=== PATIENT | male | born 1960 | race Caucasian/White ===

== ENCOUNTER 2017-07-11 10:53 | Emergency (ER) | payer OTHER ==
[~2017-07-11] VITALS: Ht 180.3 cm; Wt 106.6 kg
[~2017-07-11 10:53] MED LIST: BENZONATATE100 M1 PO; DAYPRO600 M1 PO; DIOVAN80 M1 PO; GABAPENTIN800 MG PO; HYDR25T PO; HYDROCODONE BIT1 T11 PO; KEFLEX500 MG PO; LOSARTAN POTASS1 TA5 PO; MEDROL DOSEPAK4 MG PO; MOTRIN800 MG PO; NAPROSYN500 MG PO; PARAFON FORTE500 MG PO; PREDNISONE20 MG PO; SELSUN SULFIDE120 ML T; TRAMADOL HCL50 MG PO; VERAPAMIL HCL80 MG PO; VOLTAREN75 MG PO; ZOLOFT25 MG PO
[2017-07-11 11:04] VITALS: BP 126/63
[2017-07-11] MEDS ORDERED: CEPHALEXIN500 M1 PO (12:31)
== END 2017-07-11 12:45 | disposition home or self-care (01) ==
LOC: ED 10:53
DX: L02.415 Cutaneous abscess of right lower limb (principal); Z88.6 Allergy status to analgesic agent; Z79.899 Other long term (current) drug therapy; F17.200 Nicotine dependence, unspecified, uncomplicated

== ENCOUNTER → 2017-07-13 | Outpatient (CLI) | payer OTHER ==
[~2017-07-13] MED LIST changes: +CEPHALEXIN500 M1 PO
--- NOTE | ~2017-07-13 | WRIGHTHP ---
[place], [place] PATIENT HISTORY AND PHYSICAL EXAM NAME: MORGAN PATEL [facility] #: [id number] UNIT #: [id number] ROOM: DOCTOR: BETO MICHAELS M.D. BIRTHDATE: [birth year] DOS: 07/13/2017 The patient comes in as a new wound care. CHIEF COMPLAINT: Abscess of the right thigh. HISTORY OF PRESENT ILLNESS: This is a 56-year-old male who presented to the Emergency Department 2 days ago with an abscess of the right inner thigh. This area was drained in the ER, it looks like 5 mL of seropurulent fluid was obtained and sent for culture, which is at this time growing no growth. The patient was referred to the Wound Clinic for further management. There was no blood work done at that time. PAST MEDICAL HISTORY: Significant for hypertension, low back pain, history of cancer, leukemia, right eye surgery. FAMILY HISTORY: Significant for hypertension. SOCIAL HISTORY: He is a former smoker. He quit in 2013. He smoked 2 packs per day. He drinks moderate alcohol use. ALLERGIES: CODEINE. MEDICATIONS: As follows: Tramadol 50 mg b.i.d., Hyzaar 50/12.5 p.o. daily, gabapentin 100 t.i.d., Glucophage 500 daily, Toprol-XL 50 daily, verapamil 80 p.o. t.i.d., Cymbalta 60 mg p.o. daily. He is on Keflex 500 t.i.d. REVIEW OF SYSTEMS: He states he still has noticed that the area is closed over and is firm again, although it is not painful. There are no fevers or chills. There is no tenderness at all. No nausea or vomiting. He is on the antibiotics. He says he is not having any problems with them, but the area is not draining at all anymore. PHYSICAL EXAMINATION: VITAL SIGNS: Temperature is 97.8, pulse of 84, respirations 18, blood pressure is 142/80. GENERAL: This is a male who appears slightly older than his stated age, in no acute distress. HEENT: Oropharynx is clear. Extraocular movements are intact. NECK: There is no JVD. LUNGS: Clear. CARDIOVASCULAR: S1, S2 regular rate and rhythm. ABDOMEN: Morbidly obese, and soft and nontender. EXTREMITIES: There is no calf tenderness. So, he has an area that is erythematous of the right inner thigh and is slightly indurated, but it is not tender at all and there is no fluctuance. ASSESSMENT AND PLAN: Abscess of the right upper thigh, he is status post drainage. He still has some induration present and due to the continued induration, I will add Bactrim double strength 1 tablet p.o. b.i.d. I asked him [place], [place] PATIENT HISTORY AND PHYSICAL EXAM [id number] UN[facility] #: [id number] ROOM: DOCTOR: BRANDO Diehl,BETO BIRTHDATE: 60 to use warm compresses 3 times a day for now and he has a followup appointment with his PCP. He does not have an open wound, so he does not have to come back to the Wound Clinic. However, if this area worsens, it may need to be further drained. Once again, the patient is going to follow up with his primary care physician. The patient is going to be discharged from the Wound Clinic. BETO MICHAELS MD CM:HISPHYS:PATIENT HISTORY AND PHYSICAL EXAMINATION [id number] BETO MICHAELS M.D. 07/13/17 1447 interface
== END | disposition home or self-care (01) ==
LOC: WOUNDCARE 03:20
DX: L02.415 Cutaneous abscess of right lower limb (principal); I10 Essential (primary) hypertension; Z87.891 Personal history of nicotine dependence; Z72.89 Other problems related to lifestyle

== ENCOUNTER 2018-01-06 13:33 | Emergency (ER) | payer MEDICAID ==
[~2018-01-06] VITALS: Ht 180.3 cm; Wt 120.2 kg
[2018-01-06 14:14] VITALS: BP 176/83
[2018-01-06] MEDS ORDERED: TRAMADOL HCL50 MG PO (14:15)
[2018-01-06] MEDS ORDERED: LORAZEPAM0.5 MG PO (14:15)
[2018-01-06] MEDS ORDERED: PRAVASTATIN SOD20 MG PO (14:16)
[2018-01-06] MEDS ORDERED: METFORMIN HCL500 MG PO (14:16)
[2018-01-06] MEDS ORDERED: DULOXETINE HCL60 MG PO (14:17)
[2018-01-06] MEDS ORDERED: ADVAIR 250/501 EA INH (14:17)
[2018-01-06] MEDS ORDERED: PROVENTIL HFA6.7 GM INH (14:17)
[2018-01-06] MEDS ORDERED: LORATADINE-D 11 EACH PO (14:18)
[2018-01-06] MEDS ORDERED: PREDNISONE10 MG PO (15:28)
[2018-01-06] MEDS ORDERED: ZITHROMAX250 MG PO (15:34)
== END 2018-01-06 15:59 | disposition home or self-care (01) ==
LOC: ED 13:33
DX: H66.92 Otitis media, unspecified, left ear (principal); F17.200 Nicotine dependence, unspecified, uncomplicated; I10 Essential (primary) hypertension; J45.909 Unspecified asthma, uncomplicated; Z98.890 Other specified postprocedural states; Z79.899 Other long term (current) drug therapy; Z88.5 Allergy status to narcotic agent

== ENCOUNTER 2018-05-19 12:02 | Inpatient (IN) | payer MEDICARE, MEDICAID ==
[2018-05-19] VITALS (9 sets, daily range): BP systolic 124–155; BP diastolic 60–108
[~2018-05-19] VITALS: Ht 180.3 cm; Wt 115.7 kg
--- NOTE | ~2018-05-19 | CON ---
[place], [place] REPORT OF CONSULTATION NAME: MORGAN PATEL UNIT #: [id number] ROOM: 411 DOCTOR: SHALOM MONTALVO MD BIRTHDATE: [birth year] DOS: 05/19/2018 REASON FOR CONSULTATION: Atrial flutter. HISTORY OF PRESENT ILLNESS: The patient is a 57-year-old man who has no previous history of heart disease. He does have hypertension, insulin resistance and body habitus consistent with a metabolic syndrome. He states that for the last month or so he has had several episodes where he feels breathless, weak and a fluttering sensation in his chest. This occurs once or twice a week. It lasts anywhere from 5 minutes to an hour. He was seen today by his primary physician, Dr. Gurrola, who did an electrocardiogram and documented atrial flutter with a rapid ventricular response. He was, therefore, hospitalized and placed on diltiazem after which his rhythm reverted to sinus. The patient feels well now and denies any dyspnea at rest. He denies any history of myocardial infarction or stroke. He does not have peripheral vascular disease. He does consume about one half of a fifth of whiskey a week. He does not smoke, having quit 3 years ago. He does snore heavily. PAST MEDICAL HISTORY: Includes: 1. Hypertension. 2. Obstructive lung disease with asthma. 3. Hyperlipidemia. 4. Metabolic syndrome. 5. The patient documented to have atrial flutter on 05/19/2018. 6. Insulin resistance. 7. Probable sleep apnea syndrome. HOME MEDICATIONS: Albuterol 2 puffs b.i.d., Advair 250/50 b.i.d., duloxetine 60 mg daily, gabapentin 800 mg 3 times a day, loratadine with pseudoephedrine 1 tablet b.i.d., losartan with hydrochlorothiazide 50/12.5 once a day, metformin 500 mg b.i.d., metoprolol succinate 50 mg daily, pravastatin 20 mg at bedtime and verapamil 80 mg t.i.d. ALLERGIES: CODEINE. REVIEW OF SYSTEMS: The patient denies diplopia or loss of vision. He denies lightheadedness or syncope. Denies orthopnea, PND or peripheral edema. He does have dyspnea with minor exertion. He does note lightheadedness and fatigue on occasion since the "spells" began. He denies nausea or vomiting. He denies fevers, chills, sweats or recent weight change. He denies hemoptysis or hematemesis. He denies change in bowel or bladder habits. He denies blood in the stools or urine. He denies skin rash, heat intolerance or cold intolerance and denies polyuria or polydipsia. The remainder of the review of systems is negative except as noted above. FAMILY HISTORY: Negative for early coronary artery disease. [place], [place] REPORT OF CONSULTATION NAME: MORGAN PATEL UNIT #: [id number] ROOM: 411 DOCTOR: SHALOM MONTALVO MD BIRTHDATE: [birth year] SOCIAL HISTORY: The patient was a smoker, but quit 3 years ago. He does drink alcohol on a routine basis and states that he drinks at least a half of a fifth of whiskey weekly. PHYSICAL EXAMINATION: GENERAL: The patient is an obese white man, who is awake, alert and oriented. VITAL SIGNS: Pulse varies from 60-120, blood pressure is 152/90. He has a fever of 99.9. He weighs 115.7 kg and has a body mass index of 35.6. HEENT: Normocephalic and atraumatic. Extraocular muscles are intact. Sclerae are clear. Pupils are equal, round and react to light. The oral mucosa is moist. Tongue is midline. NECK: Supple. He has no jugular distention. Carotids are full without bruits. There are no neck or supraclavicular masses, no thyromegaly. LUNGS: Respirations are unlabored. His chest is clear to auscultation and percussion. He has no presacral edema or chest wall tenderness. CARDIOVASCULAR: His heart has a regular rhythm. He has a fourth heart sound, but no third heart sound or murmur. The PMI is not displaced. He has no precordial heave, lift or thrill. ABDOMEN: Obese, but otherwise benign, without masses, organomegaly or bruits. EXTREMITIES: No edema. Peripheral pulses were easily palpated in the feet bilaterally. There were no palpable cords or Homans sign. LABORATORY DATA: I reviewed his electrocardiogram, in sinus rhythm. It was a normal tracing. Hemoglobin is 16.9, hematocrit 52.2. There are 14,600 white cells. Sodium is 142, potassium 4.2, chloride 107, CO2 27. BUN 21, creatinine 1.16, glucose 114. Troponins have been negative x 2. TSH is 1.63. IMPRESSION: 1. Newly documented atrial flutter. 2. CHADS-VASc score of 2 indicating high risk for future strokes. 3. Hypertension. 4. Insulin resistance. 5. Hyperlipidemia. 6. Metabolic syndrome. 7. Essential hypertension. 8. Alcohol use. 9. Probable sleep apnea syndrome. The patient will be treated with rate control for now. We will increase his beta yuir and continue to observe him on the monitor. His risk for stroke is high and therefore, he will be started on Xarelto. He will require testing and management of sleep apnea syndrome as an outpatient. He was told that he should curtail his alcohol consumption. In addition, I note that he was on a decongestant with Sudafed and we should stop that. I will review his echocardiogram once available. We will follow him with his other physicians in the hospital. I thank Dr. Gurrola for asking our advice regarding his care. [place], [place] REPORT OF CONSULTATION NAME: MORGAN PATEL UNIT #: [id number] ROOM: 411 DOCTOR: SHALOM MONTALVO MD BIRTHDATE: [birth year] SHALOM MONTALVO MD CM:CONSTR:REPORT OF CONSULTATION 1707 05/29/18 0922 interface
--- NOTE | ~2018-05-19 | PR ---
[place], [place] PROGRESS NOTE [id number] UN[facility] #: [id number] ROOM: 411 DOCTOR: SYLVESTER VERONICA MD BIRTHDATE: [birth year] DOS: 05/20/2018 SUBJECTIVE: The patient has been admitted to the hospital with atrial flutter by Dr. Gurrola yesterday and the patient is feeling good now. He does not have any chest pain, no tachycardia, no difficulty in breathing and he is in normal sinus rhythm, rate is 58 per minute. He has past history of chronic back pain, hypertension, major depression, type 2 diabetes. The patient drinks alcohol one-fifth every week and smokes 4-5 cigars daily. On examination, the patient is conscious, alert and oriented, sitting very comfortably in the chair. He ate his breakfast very comfortably. His troponin level on 2 different occasions are normal. Echocardiogram shows left ventricular size, normal size. There is a normal left ventricular segmental wall motion, moderate concentric left ventricular hypertrophy, ejection fraction 60%. Right ventricle is normal. Comprehensive metabolic profile showed glucose 209, BUN 21, creatinine 1.14, GFR is 52. Lipid profile is normal. Hemoglobin A1c 6.9 and vitamin B12 and folic acid is normal. Vitamin D level is low and CBC today showed white count 21,100; hemoglobin 15.9; hematocrit 49.8; 94% neutrophils; 60% lymphocytes. OBJECTIVE: VITAL SIGNS: His blood pressure today is 113/52, pulse 61, respirations 18, temperature 98.1. HEART: Regular. CHEST: Clear. ABDOMEN: Soft. SYLVESTER VERONICA MD CM:PNTRANS [id number] SYLVESTER VERONICA MD 06/15/18 0840 interface
--- NOTE | ~2018-05-19 | PR ---
[place], [place] PROGRESS NOTE [id number] #: [id number] ROOM: 411 DOCTOR: SYLVESTER VERONICA MD BIRTHDATE: [birth year] DOS: 05/21/2018 SUBJECTIVE: The patient has been admitted to the hospital with atrial flutter. The patient is feeling good today. There is no nausea, no vomiting, no chest pain, no difficulty in breathing. The patient is able to ambulate fairly good without any problem, but he is having leukocytosis. His blood count again today is 32,000, hemoglobin 15.3, hematocrit is 47.1, 89% neutrophils, 6% lymphocytes, 28% neutrophils. OBJECTIVE: VITAL SIGNS: Blood pressure 143/73, pulse 60, respirations 20, temperature 98.4. CHEST: Clear. HEART: Regular. ABDOMEN: Soft. SYLVESTER VERONICA MD CM:PNTRANS [id number] SYLVESTER VEROINCA MD 05/22/18 1400 interface
--- NOTE | ~2018-05-19 | PR ---
[place], [place] PROGRESS NOTE NAME: MORGAN PATEL UNIT #: [id number] ROOM: 411 DOCTOR: SHALOM MONTALVO MD BIRTHDATE: [birth year] DOS: 05/22/2018 CARDIOLOGY PROGRESS NOTE SUBJECTIVE: The patient was seen at his bedside today 05/22/2018 for followup of his newly documented atrial flutter. He has remained in sinus rhythm since he spontaneously converted to sinus rhythm out of flutter on 05/19/2018. He is tolerating beta yuri therapy and his blood pressure control is good. His discharge appears to have been held up by the fact that his white count continues to elevate. PHYSICAL EXAMINATION: VITAL SIGNS: Today, his pulse is 51 and regular, blood pressure 124/62. He is afebrile. NECK: Supple. He has no jugular distention. Carotids are full. LUNGS: Respirations are unlabored. His chest is clear. HEART: Has a regular rhythm with an S4 gallop. ABDOMEN: Benign. EXTREMITIES: Showed no edema. LABORATORY DATA: Hemoglobin is 15.3 with hematocrit 47.1. There were 32,000 white cells and platelet count of 373,000. IMPRESSION: 1. Newly documented atrial flutter. The patient converted spontaneously to sinus rhythm. 2. [id number] score of 2 indicating high risk for future strokes. 3. Essential hypertension. 4. Insulin resistance. 5. Metabolic syndrome. 6. Hyperlipidemia. 7. History of alcohol use. 8. Probable sleep apnea syndrome. 9. Leukocytosis, probably exacerbated by intravenous steroid use. No other cardiac workup or change in management is planned. We will remain available to see the patient as needed, but in the meantime, we will sign off his care. I would like him to follow up with us in the office in 3-4 weeks. I thank the hospitalist physicians for asking our advice regarding his management. [place], [place] PROGRESS NOTE NAME: MORGAN PATEL UNIT #: [id number] ROOM: 411 DOCTOR: SHALOM MONTALVO MD BIRTHDATE: [birth year] SHALOM MONTALVO MD CM:PNTRANS [id number] SHALOM MONTALVO MD 05/23/18 0718 interface
[~2018-05-19 12:02] MED LIST changes: +ADVAIR 250/501 EA INH; +DULOXETINE HCL60 MG PO; +LORATADINE-D 11 EACH PO; +LORAZEPAM0.5 MG PO; -LOSARTAN POTASS1 TA5 PO; +LOSARTAN-HCTZ1 EACH PO; +METFORMIN HCL500 MG PO; +PRAVASTATIN SOD20 MG PO; +PREDNISONE10 MG PO; +PROVENTIL HFA6.7 GM INH; +ZITHROMAX250 MG PO
[2018-05-19 12:48] LABS: BASO # 0.1 10*3/uL (0.0-0.1); BASO % 0.6 % (0.0-1.0); EOS # 0.3 10*3/uL (0.0-0.4); EOS % 1.8 % (1.0-4.0); HEMATOCRIT 52.2 % (42.0-52.0); HEMOGLOBIN 16.9 g/dl (14.0-18.0); LYMPH # 4.3 10*3/uL (1.3-4.4); LYMPH % 29.1 % (27.0-41.0); MEAN CELL VOLUME 95.4 fl (80.0-94.0); MEAN CORPUSCULAR HGB 30.9 pg (27.0-31.0); MEAN CORPUSCULAR HGB CONC 32.4 g/dl (33.0-37.0); MEAN PLATELET VOLUME 10.1 fl (9.6-12.3); MONO % 6.8 % (3.0-9.0); NEUT % 61.4 % (47.0-73.0); PLATELET COUNT AUTOMATED 352 10*3/uL (130-400); RED BLOOD COUNT 5.47 10*6/uL (4.50-5.90); RED CELL DISTRI WIDTH 13.3 % (0-14.5); WHITE BLOOD COUNT 14.6 10*3/uL (4.8-10.8)
[2018-05-19 12:57] LABS: ACT PARTIAL THROMBO TIME 25.5 SECONDS (20.8-31.5); INTERNATIONAL NORM RATIO 0.9 (2.0-3.5)
[2018-05-19] MEDS ORDERED: PROAIR HFA8.5 GM INH (13:04)
[2018-05-19 13:05] LABS: ALBUMIN 3.7 gm/dl (3.1-4.5); ALKALINE PHOSPHATASE 155 U/L (45-117); BUN 21 mg/dl (7-24); CHLORIDE 107 mmol/L (98-107); CREATININE 1.16 mg/dL (0.70-1.30); PHOSPHOROUS 2.8 mg/dL (2.5-4.9); POTASSIUM 4.2 mmol/L (3.5-5.1); SGOT/AST 31 IU/L (3-35); SGPT/ALT 71 U/L (12-78); SODIUM 142 mmol/L (136-145)
[2018-05-19] MEDS ORDERED: TOPROL XL50 M1 PO (13:08)
[2018-05-19 13:09] LABS: TROPONIN I < 0.015 ng/ml (<0.045)
[2018-05-19 14:19] LABS: BILIRUBIN NEGATIVE (NEGATIVE); BLOOD NEGATIVE (NEGATIVE); CLARITY CLEAR (CLEAR); COLOR YELLOW (YELLOW); GLUCOSE NEGATIVE (NEGATIVE); KETONE NEGATIVE (NEGATIVE); LEUKO ESTERASE NEGATIVE (NEGATIVE); NITRITE NEGATIVE (NEGATIVE); PH 5.5 (5.0-9.0); UROBILINOGEN 0.2 E.U./dl (0.2-1.0)
[2018-05-19 14:29] LABS: BACTERIA TRACE; EPITHELIAL CELLS 0-2
[2018-05-20] VITALS: BP 123/55
[2018-05-20 04:00] VITALS: BP 111/49
[2018-05-20 06:08] LABS: HEMATOCRIT 49.8 % (42.0-52.0); HEMOGLOBIN 15.9 g/dl (14.0-18.0); MEAN CELL VOLUME 95.8 fl (80.0-94.0); MEAN CORPUSCULAR HGB 30.6 pg (27.0-31.0); MEAN CORPUSCULAR HGB CONC 31.9 g/dl (33.0-37.0); MEAN PLATELET VOLUME 10.2 fl (9.6-12.3); PLATELET COUNT AUTOMATED 350 10*3/uL (130-400); RED CELL DISTRI WIDTH 13.2 % (0-14.5); WHITE BLOOD COUNT 21.1 10*3/uL (4.8-10.8)
[2018-05-20 06:29] LABS: ALBUMIN 3.3 gm/dl (3.1-4.5); ALKALINE PHOSPHATASE 126 U/L (45-117); BUN 21 mg/dl (7-24); CHLORIDE 106 mmol/L (98-107); CHOLESTEROL 164 mg/dL (<200); CREATININE 1.41 mg/dL (0.70-1.30); HDL CHOLESTEROL 34 mg/dl (40-60); LDL CHOLESTEROL 106 mg/dL (9-159); PHOSPHOROUS 3.2 mg/dL (2.5-4.9); POTASSIUM 4.2 mmol/L (3.5-5.1); SGOT/AST 14 IU/L (3-35); SGPT/ALT 60 U/L (12-78); SODIUM 141 mmol/L (136-145); TOTAL PROTEIN 7.1 gm/dL (6.4-8.2); TRIGLYCERIDES 120 mg/dl (<150); VLDL CHOLESTEROL 24 mg/dL (6-40)
[2018-05-20 07:17] LABS: PLATELET SUFFICIENCY NORMAL (NORMAL); TOTAL CELLS COUNTED 100 #CELLS
[2018-05-20 07:36] LABS: VITAMIN D, 25-HYDROXY 21.7 ng/mL (30-100)
[2018-05-20 08:00] VITALS: BP 113/52
[2018-05-20 11:55] VITALS: BP 121/54
[2018-05-20 16:00] VITALS: BP 139/62
[2018-05-20 20:00] VITALS: BP 128/61
[2018-05-21] VITALS: BP 113/60
[2018-05-21 08:00] VITALS: BP 143/73
[2018-05-21 12:00] VITALS: BP 162/64
[2018-05-21 12:30] LABS: HEMATOCRIT 47.1 % (42.0-52.0); HEMOGLOBIN 15.3 g/dl (14.0-18.0); MEAN CELL VOLUME 94.6 fl (80.0-94.0); MEAN CORPUSCULAR HGB 30.7 pg (27.0-31.0); MEAN CORPUSCULAR HGB CONC 32.5 g/dl (33.0-37.0); MEAN PLATELET VOLUME 10.3 fl (9.6-12.3); PLATELET COUNT AUTOMATED 373 10*3/uL (130-400); RED BLOOD COUNT 4.98 10*6/uL (4.50-5.90); RED CELL DISTRI WIDTH 13.7 % (0-14.5)
[2018-05-21 12:50] LABS: TOTAL CELLS COUNTED 100 #CELLS
[2018-05-21 12:51] LABS: PLATELET SUFFICIENCY NORMAL (NORMAL)
[2018-05-21 16:00] VITALS: BP 140/66
[2018-05-21 20:00] VITALS: BP 138/65
[2018-05-22] VITALS: BP 114/61
[2018-05-22 08:00] VITALS: BP 124/62
[2018-05-22 12:00] VITALS: BP 137/75
[2018-05-22] MEDS ORDERED: PREDNISONE10 MG PO (13:08)
[2018-05-22] MEDS ORDERED: TOPROL XL50 M1 PO (13:08)
[2018-05-22] MEDS ORDERED: DOXYCYCLINE100 MG PO (13:08)
[2018-05-22] MEDS ORDERED: XARE20MG PO (13:08)
[2018-06-13] MEDS ORDERED: GLUCOPHAGE500 M1 PO (09:06)
== END 2018-05-22 13:37 | disposition home or self-care (01) | DRG 871 ==
LOC: 4E 12:02 → ICCU 12:02 → 4E 05-20 14:02
PROVIDERS: Family Medicine; Internal Medicine Cardiovascular Disease
DX: A41.9 Sepsis, unspecified organism (principal); J18.9 Pneumonia, unspecified organism; E88.81 Metabolic syndrome and other insulin resistance; I48.92 Unspecified atrial flutter; E11.65 Type 2 diabetes mellitus with hyperglycemia; J44.1 Chronic obstructive pulmonary disease with (acute) exacerbation; J44.0 Chronic obstructive pulmonary disease with (acute) lower respiratory infection; F33.9 Major depressive disorder, recurrent, unspecified; G89.29 Other chronic pain; M54.9 Dorsalgia, unspecified; F17.210 Nicotine dependence, cigarettes, uncomplicated; G47.30 Sleep apnea, unspecified; E78.5 Hyperlipidemia, unspecified; I10 Essential (primary) hypertension; F10.10 Alcohol abuse, uncomplicated; Z88.5 Allergy status to narcotic agent; Z79.899 Other long term (current) drug therapy; Z88.8 Allergy status to other drugs, medicaments and biological substances; Z79.84 Long term (current) use of oral hypoglycemic drugs; Z82.49 Family history of ischemic heart disease and other diseases of the circulatory system; Z80.42 Family history of malignant neoplasm of prostate; Z71.6 Tobacco abuse counseling

== ENCOUNTER 2018-06-09 11:08 | Emergency (ER) | payer MEDICARE, MEDICAID ==
[~2018-06-09] VITALS: Ht 180.3 cm; Wt 118.8 kg
[~2018-06-09 11:08] MED LIST changes: +DOXYCYCLINE100 MG PO; +PROAIR HFA8.5 GM INH; +TOPROL XL50 M1 PO; +XARE20MG PO
[2018-06-09 11:11] VITALS: BP 131/58
[2018-06-09 11:56] LABS: BASO # 0.1 10*3/uL (0.0-0.1); BASO % 0.5 % (0.0-1.0); EOS # 0.2 10*3/uL (0.0-0.4); EOS % 1.4 % (1.0-4.0); HEMOGLOBIN 15.1 g/dl (14.0-18.0); LYMPH # 2.6 10*3/uL (1.3-4.4); LYMPH % 22.4 % (27.0-41.0); MEAN CELL VOLUME 94.5 fl (80.0-94.0); MEAN CORPUSCULAR HGB CONC 32.8 g/dl (33.0-37.0); MEAN PLATELET VOLUME 9.6 fl (9.6-12.3); MONO # 0.7 10*3/uL (0.1-1.0); MONO % 5.9 % (3.0-9.0); NEUT # 8.2 10*3/uL (2.3-7.9); NEUT % 69.5 % (47.0-73.0); PLATELET COUNT AUTOMATED 251 10*3/uL (130-400); RED BLOOD COUNT 4.87 10*6/uL (4.50-5.90); RED CELL DISTRI WIDTH 14.1 % (0-14.5); WHITE BLOOD COUNT 11.8 10*3/uL (4.8-10.8)
[2018-06-09 12:05] LABS: ACT PARTIAL THROMBO TIME 33.4 SECONDS (20.8-31.5)
[2018-06-09 12:14] LABS: ALBUMIN 3.4 gm/dl (3.1-4.5); ALKALINE PHOSPHATASE 126 U/L (45-117); BUN 17 mg/dl (7-24); CHLORIDE 106 mmol/L (98-107); CREATININE 0.97 mg/dL (0.70-1.30); LIPASE 366 U/L (73-393); POTASSIUM 4.2 mmol/L (3.5-5.1); SGOT/AST 17 IU/L (3-35); SGPT/ALT 39 U/L (12-78); SODIUM 141 mmol/L (136-145); TOTAL PROTEIN 6.7 gm/dL (6.4-8.2)
[2018-06-13] MEDS ORDERED: GLUCOPHAGE500 M1 PO (09:06)
== END 2018-06-09 14:28 | disposition home or self-care (01) ==
LOC: ED 11:08
PROVIDERS: Emergency Medicine
DX: M54.2 Cervicalgia (principal); E04.1 Nontoxic single thyroid nodule; H92.01 Otalgia, right ear; F17.210 Nicotine dependence, cigarettes, uncomplicated; Z88.6 Allergy status to analgesic agent; Z79.899 Other long term (current) drug therapy

== ENCOUNTER → 2018-06-13 | Outpatient (CLI) | payer MEDICARE, MEDICAID ==
[~2018-06-13] MED LIST changes: +GLUCOPHAGE500 M1 PO
== END | disposition home or self-care (01) ==
LOC: CARD 03:22
DX: I48.92 Unspecified atrial flutter (principal); R06.02 Shortness of breath

== ENCOUNTER → 2018-06-26 | Outpatient (CLI) | payer MEDICARE, MEDICAID | END | disposition home or self-care (01) | LOC: US 11:00 | DX: E04.1 Nontoxic single thyroid nodule (principal); R06.83 Snoring ==

== ENCOUNTER 2018-10-22 03:31 | Inpatient (IN) | payer MEDICARE, MEDICAID ==
[~2018-10-22] VITALS: Ht 180.3 cm; Wt 119.8 kg
[2018-10-22] VITALS (8 sets, daily range): BP systolic 127–156; BP diastolic 62–89
[2018-10-22 04:12] LABS: BASO # 0.1 10*3/uL (0.0-0.1); BASO % 0.8 % (0.0-1.0); EOS # 0.2 10*3/uL (0.0-0.4); EOS % 1.7 % (1.0-4.0); HEMATOCRIT 51.5 % (42.0-52.0); HEMOGLOBIN 17.2 g/dl (14.0-18.0); LYMPH # 2.9 10*3/uL (1.3-4.4); LYMPH % 20.4 % (27.0-41.0); MEAN CELL VOLUME 91.2 fl (80.0-94.0); MEAN CORPUSCULAR HGB 30.4 pg (27.0-31.0); MEAN CORPUSCULAR HGB CONC 33.4 g/dl (33.0-37.0); MEAN PLATELET VOLUME 10.1 fl (9.6-12.3); MONO # 1.1 10*3/uL (0.1-1.0); MONO % 7.4 % (3.0-9.0); NEUT % 69.4 % (47.0-73.0); PLATELET COUNT AUTOMATED 319 10*3/uL (130-400); RED BLOOD COUNT 5.65 10*6/uL (4.50-5.90); RED CELL DISTRI WIDTH 13.2 % (0-14.5); WHITE BLOOD COUNT 14.4 10*3/uL (4.8-10.8)
[2018-10-22 04:14] LABS: BILIRUBIN NEGATIVE (NEGATIVE); BLOOD 2+ (NEGATIVE); CLARITY SL CLOUDY (CLEAR); COLOR YELLOW (YELLOW); GLUCOSE TRACE (NEGATIVE); KETONE NEGATIVE (NEGATIVE); LEUKO ESTERASE NEGATIVE (NEGATIVE); NITRITE NEGATIVE (NEGATIVE); PH 5.5 (5.0-9.0); SPECIFIC GRAVITY 1.025 (1.005-1.030); UROBILINOGEN 0.2 E.U./dl (0.2-1.0)
[2018-10-22 04:24] LABS: BACTERIA 1+; MUCOUS 1+; RBC 31-40 rbc/hpf (0-2)
[2018-10-22 04:37] LABS: ALBUMIN 3.9 gm/dl (3.1-4.5); ALKALINE PHOSPHATASE 125 U/L (45-117); BUN 14 mg/dl (7-24); CHLORIDE 104 mmol/L (98-107); CREATININE 1.14 mg/dL (0.70-1.30); POTASSIUM 4.1 mmol/L (3.5-5.1); SGOT/AST 21 IU/L (3-35); SGPT/ALT 45 U/L (12-78); SODIUM 139 mmol/L (136-145); TOTAL PROTEIN 7.5 gm/dL (6.4-8.2)
[2018-10-23] VITALS: BP 136/74
[2018-10-23 07:06] LABS: BASO # 0.1 10*3/uL (0.0-0.1); BASO % 0.7 % (0.0-1.0); EOS # 0.2 10*3/uL (0.0-0.4); EOS % 2.4 % (1.0-4.0); HEMATOCRIT 50.9 % (42.0-52.0); HEMOGLOBIN 16.4 g/dl (14.0-18.0); LYMPH # 2.6 10*3/uL (1.3-4.4); LYMPH % 27.6 % (27.0-41.0); MEAN CELL VOLUME 93.1 fl (80.0-94.0); MEAN CORPUSCULAR HGB CONC 32.2 g/dl (33.0-37.0); MONO # 0.7 10*3/uL (0.1-1.0); MONO % 6.8 % (3.0-9.0); NEUT % 62.3 % (47.0-73.0); PLATELET COUNT AUTOMATED 282 10*3/uL (130-400); RED BLOOD COUNT 5.47 10*6/uL (4.50-5.90); RED CELL DISTRI WIDTH 13.1 % (0-14.5); WHITE BLOOD COUNT 9.6 10*3/uL (4.8-10.8)
[2018-10-23 07:32] LABS: CHLORIDE 104 mmol/L (98-107); POTASSIUM 4.2 mmol/L (3.5-5.1); SODIUM 138 mmol/L (136-145)
[2018-10-23 07:43] LABS: BUN 11 mg/dl (7-24); CREATININE 1.09 mg/dL (0.70-1.30)
[2018-10-23 08:00] VITALS: BP 140/68
[2018-10-23 12:00] VITALS: BP 145/63
[2018-10-23 16:00] VITALS: BP 146/72
[2018-10-23 20:00] VITALS: BP 140/51
[2018-10-24] VITALS: BP 129/63
[2018-10-24 06:59] LABS: BASO # 0.1 10*3/uL (0.0-0.1); BASO % 0.7 % (0.0-1.0); EOS # 0.2 10*3/uL (0.0-0.4); EOS % 2.1 % (1.0-4.0); HEMATOCRIT 48.3 % (42.0-52.0); HEMOGLOBIN 15.6 g/dl (14.0-18.0); LYMPH # 2.9 10*3/uL (1.3-4.4); LYMPH % 26.7 % (27.0-41.0); MEAN CELL VOLUME 92.4 fl (80.0-94.0); MEAN CORPUSCULAR HGB 29.8 pg (27.0-31.0); MEAN CORPUSCULAR HGB CONC 32.3 g/dl (33.0-37.0); MEAN PLATELET VOLUME 10.2 fl (9.6-12.3); MONO # 0.8 10*3/uL (0.1-1.0); MONO % 7.4 % (3.0-9.0); NEUT # 6.8 10*3/uL (2.3-7.9); NEUT % 62.6 % (47.0-73.0); PLATELET COUNT AUTOMATED 285 10*3/uL (130-400); RED BLOOD COUNT 5.23 10*6/uL (4.50-5.90); RED CELL DISTRI WIDTH 13.1 % (0-14.5); WHITE BLOOD COUNT 10.9 10*3/uL (4.8-10.8)
[2018-10-24 07:14] LABS: BUN 9 mg/dl (7-24); CHLORIDE 104 mmol/L (98-107); POTASSIUM 4.3 mmol/L (3.5-5.1); SODIUM 139 mmol/L (136-145)
[2018-10-24 08:00] VITALS: BP 132/64
[2018-10-24] MEDS ORDERED: FLAGYL500 MG PO (11:36)
[2018-10-25 10:05] LABS: CREATININE,URINE 95.4 mg/dL (Not Estab.); MICRO ALBUMIN/CRE RATIO 75.3 (0.0-30.0)
== END 2018-10-24 11:47 | disposition home or self-care (01) | DRG 872 ==
LOC: ED 03:31 → 5E 05:57 → EDHOLD 05:57 → 5E 06:04
PROVIDERS: Emergency Medicine Emergency Medical Services; Internal Medicine; Internal Medicine Nephrology
DX: A41.9 Sepsis, unspecified organism (principal); J44.0 Chronic obstructive pulmonary disease with (acute) lower respiratory infection; I48.92 Unspecified atrial flutter; J44.1 Chronic obstructive pulmonary disease with (acute) exacerbation; K57.32 Diverticulitis of large intestine without perforation or abscess without bleeding; F10.10 Alcohol abuse, uncomplicated; G89.29 Other chronic pain; M54.9 Dorsalgia, unspecified; I10 Essential (primary) hypertension; E11.9 Type 2 diabetes mellitus without complications; F17.210 Nicotine dependence, cigarettes, uncomplicated; I48.91 Unspecified atrial fibrillation; J20.9 Acute bronchitis, unspecified; R31.0 Gross hematuria; Z71.6 Tobacco abuse counseling; Z87.01 Personal history of pneumonia (recurrent); Z82.49 Family history of ischemic heart disease and other diseases of the circulatory system; Z88.6 Allergy status to analgesic agent; Z80.42 Family history of malignant neoplasm of prostate; Z79.84 Long term (current) use of oral hypoglycemic drugs; Z79.899 Other long term (current) drug therapy; Z79.01 Long term (current) use of anticoagulants

== ENCOUNTER → 2018-11-03 | Outpatient (CLI) | payer MEDICARE, MEDICAID ==
[~2018-11-03] MED LIST changes: +FLAGYL500 MG PO
== END | disposition home or self-care (01) ==
LOC: US 10:05
DX: N32.89 Other specified disorders of bladder (principal); I10 Essential (primary) hypertension; E11.9 Type 2 diabetes mellitus without complications

== ENCOUNTER 2018-11-29 23:01 | Emergency (ER) | payer MEDICARE, MEDICAID ==
[~2018-11-29] VITALS: Ht 180.3 cm; Wt 117.9 kg
[~2018-11-29 23:01] MED LIST changes: +SEPTDS PO
[2018-11-29 23:03] VITALS: BP 146/78
[2018-11-29 23:38] LABS: BILIRUBIN NEGATIVE (NEGATIVE); BLOOD 3+ (NEGATIVE); CLARITY CLOUDY (CLEAR); COLOR YELLOW (YELLOW); GLUCOSE NEGATIVE (NEGATIVE); KETONE NEGATIVE (NEGATIVE); LEUKO ESTERASE 1+ (NEGATIVE); NITRITE NEGATIVE (NEGATIVE); UROBILINOGEN 0.2 E.U./dl (0.2-1.0)
[2018-11-29 23:42] LABS: BACTERIA TRACE; RBC TNTC rbc/hpf (0-2); WBC 0-2 wbc/hpf (0-5)
== END 2018-11-30 00:36 | disposition home or self-care (01) ==
LOC: ED 23:01
PROVIDERS: Emergency Medicine Emergency Medical Services
DX: R33.9 Retention of urine, unspecified (principal); J44.9 Chronic obstructive pulmonary disease, unspecified; I10 Essential (primary) hypertension; G89.29 Other chronic pain; E11.9 Type 2 diabetes mellitus without complications; Z98.890 Other specified postprocedural states; Z88.6 Allergy status to analgesic agent

== ENCOUNTER → 2018-12-29 | Outpatient (CLI) | payer MEDICARE, MEDICAID ==
[2018-12-29 12:44] LABS: BASO # 0.1 10*3/uL (0.0-0.1); BASO % 0.8 % (0.0-1.0); EOS # 0.3 10*3/uL (0.0-0.4); EOS % 1.9 % (1.0-4.0); HEMATOCRIT 49.6 % (42.0-52.0); HEMOGLOBIN 15.7 g/dl (14.0-18.0); LYMPH # 3.9 10*3/uL (1.3-4.4); LYMPH % 28.9 % (27.0-41.0); MEAN CELL VOLUME 93.4 fl (80.0-94.0); MEAN CORPUSCULAR HGB 29.6 pg (27.0-31.0); MEAN CORPUSCULAR HGB CONC 31.7 g/dl (33.0-37.0); MEAN PLATELET VOLUME 10.1 fl (9.6-12.3); MONO # 0.9 10*3/uL (0.1-1.0); NEUT # 8.2 10*3/uL (2.3-7.9); NEUT % 61.1 % (47.0-73.0); PLATELET COUNT AUTOMATED 337 10*3/uL (130-400); RED BLOOD COUNT 5.31 10*6/uL (4.50-5.90); RED CELL DISTRI WIDTH 14.3 % (0-14.5); WHITE BLOOD COUNT 13.4 10*3/uL (4.8-10.8)
[2018-12-29 13:11] LABS: ALBUMIN 3.7 gm/dl (3.1-4.5); ALKALINE PHOSPHATASE 151 U/L (45-117); BUN 12 mg/dl (7-24); CHLORIDE 103 mmol/L (98-107); CREATININE 1.06 mg/dL (0.70-1.30); SGOT/AST 19 IU/L (3-35); SGPT/ALT 49 U/L (12-78); SODIUM 141 mmol/L (136-145); TOTAL PROTEIN 7.5 gm/dL (6.4-8.2)
== END | disposition home or self-care (01) ==
LOC: LAB 12:01 → US 13:00
PROVIDERS: Urology
DX: N28.89 Other specified disorders of kidney and ureter (principal); I48.91 Unspecified atrial fibrillation; E55.9 Vitamin D deficiency, unspecified; D40.0 Neoplasm of uncertain behavior of prostate

== ENCOUNTER → 2019-03-07 | Outpatient (CLI) | payer MEDICARE, MEDICAID ==
[2019-03-07 16:49] LABS: BASO # 0.1 10*3/uL (0.0-0.1); BASO % 0.5 % (0.0-1.0); EOS # 0.2 10*3/uL (0.0-0.4); EOS % 1.7 % (1.0-4.0); HEMATOCRIT 46.7 % (42.0-52.0); LYMPH # 3.5 10*3/uL (1.3-4.4); LYMPH % 26.8 % (27.0-41.0); MEAN CELL VOLUME 93.2 fl (80.0-94.0); MEAN CORPUSCULAR HGB 29.9 pg (27.0-31.0); MEAN CORPUSCULAR HGB CONC 32.1 g/dl (33.0-37.0); MEAN PLATELET VOLUME 10.5 fl (9.6-12.3); MONO % 7.5 % (3.0-9.0); NEUT # 8.3 10*3/uL (2.3-7.9); NEUT % 63.1 % (47.0-73.0); PLATELET COUNT AUTOMATED 351 10*3/uL (130-400); RED BLOOD COUNT 5.01 10*6/uL (4.50-5.90); RED CELL DISTRI WIDTH 13.7 % (0-14.5); WHITE BLOOD COUNT 13.2 10*3/uL (4.8-10.8)
== END | disposition home or self-care (01) ==
LOC: LAB 15:48
PROVIDERS: Internal Medicine
DX: R31.9 Hematuria, unspecified (principal)

== ENCOUNTER → 2019-03-22 | Outpatient (CLI) | payer MEDICARE, MEDICAID ==
[2019-03-22 12:18] LABS: BUN 13 mg/dl (7-24); CHLORIDE 109 mmol/L (98-107); POTASSIUM 4.1 mmol/L (3.5-5.1); SODIUM 144 mmol/L (136-145)
== END | disposition home or self-care (01) ==
LOC: LAB 11:05
PROVIDERS: Internal Medicine Nephrology
DX: I10 Essential (primary) hypertension (principal)

== ENCOUNTER → 2019-08-03 | Outpatient (CLI) | payer MEDICARE, MEDICAID | END | disposition home or self-care (01) | LOC: US 09:40 | DX: R10.31 Right lower quadrant pain (principal); I10 Essential (primary) hypertension; E11.9 Type 2 diabetes mellitus without complications ==

== ENCOUNTER 2019-08-23 15:22 | Inpatient (IN) | payer MEDICARE, MEDICAID ==
[~2019-08-23] VITALS: Ht 180.3 cm; Wt 116.6 kg
[~2019-08-23 15:22] MED LIST changes: -METFORMIN HCL500 MG PO; +METFORMIN XR500 MG PO
[2019-08-23 16:00] VITALS: BP 105/54; BP 130/82
[2019-08-23 16:22] LABS: BASO # 0.1 10*3/uL (0.0-0.1); BASO % 0.5 % (0.0-1.0); EOS # 0.2 10*3/uL (0.0-0.4); EOS % 1.3 % (1.0-4.0); HEMATOCRIT 52.2 % (42.0-52.0); HEMOGLOBIN 17.1 g/dl (14.0-18.0); LYMPH % 18.8 % (27.0-41.0); MEAN CELL VOLUME 92.6 fl (80.0-94.0); MEAN CORPUSCULAR HGB 30.3 pg (27.0-31.0); MEAN CORPUSCULAR HGB CONC 32.8 g/dl (33.0-37.0); MEAN PLATELET VOLUME 10.1 fl (9.6-12.3); MONO # 1.2 10*3/uL (0.1-1.0); MONO % 7.5 % (3.0-9.0); NEUT # 11.3 10*3/uL (2.3-7.9); NEUT % 71.5 % (47.0-73.0); PLATELET COUNT AUTOMATED 343 10*3/uL (130-400); RED BLOOD COUNT 5.64 10*6/uL (4.50-5.90); RED CELL DISTRI WIDTH 14.3 % (0-14.5); WHITE BLOOD COUNT 15.8 10*3/uL (4.8-10.8)
--- NOTE | 2019-08-23 16:33 | NUR ---
Time: 1599 A 58 year old MALE admitted to under services of DR. JENNIFER TERAN,RODRIGO. Pt. arrived via ambulatory from MD. Chief complaint: ABSCESS LEFT ARMPIT. HISSOM,MAISHA
--- NOTE | 2019-08-23 16:37 | NUR ---
DR. HARPER CALLED SHE NOTIFIED DR. LAUREANO AWARE OF CONSULT. NPO AFTER MIDNIGHT.
[2019-08-23 16:42] LABS: ALBUMIN 3.8 gm/dl (3.1-4.5); ALKALINE PHOSPHATASE 180 U/L (45-117); BUN 18 mg/dl (7-24); CHLORIDE 105 mmol/L (98-107); CREATININE 1.21 mg/dL (0.70-1.30); POTASSIUM 4.2 mmol/L (3.5-5.1); SGOT/AST 25 IU/L (3-35); SGPT/ALT 61 U/L (12-78); SODIUM 138 mmol/L (136-145); TOTAL PROTEIN 7.7 gm/dL (6.4-8.2)
--- NOTE | 2019-08-23 16:48 | NUR ---
PATEINT TAKEN OFF FLOOR VIA WHEELCHAIR TO ULTRASOUND
--- NOTE | 2019-08-23 17:14 | NUR ---
IV started right hand with #22 angiocath after 1 attempts. The IV site was prepped with Chloraprep. Heparin lock attached. Sterile dressing applied. Patient tolerated precedure well. Procedure performed according to [facility] policy & procedure. ARMANDO DON
--- NOTE | 2019-08-23 19:00 | NUR ---
RESTING IN BED. TOLERATED ROUTINE IV MEDICATION. CALL LIGHT IN REACH.
[2019-08-23 20:00] VITALS: BP 123/65
--- NOTE | 2019-08-23 20:39 | NUR ---
CALLED DR. DAHL REGARDING PT STATES HE ATE SOME PIZZA FOR DINNER AND GOT HEARTBURN. HE WOULD LIKE TUMS OR ROLAIDS. ORDER TAKEN AND REVIEWED.
--- NOTE | 2019-08-23 21:14 | NUR ---
MEDICATED WITH TUMS PO FOR INDIGESTION, SEE EMAR. CALL LIGHT IN REACH.
--- NOTE | 2019-08-23 22:00 | NUR ---
PT RESTING IN BED. MEDICATIONS EFFECTIVE. CALL LIGHT IN REACH.
[2019-08-24] VITALS (8 sets, daily range): BP systolic 100–151; BP diastolic 38–84
--- NOTE | 2019-08-24 01:27 | NUR ---
0000 RESTING IN BED WITH EYES CLOSED. APPEARS TO BE SLEEPING. HEP LINDA C INTACT. NO DISTRESS NOTED. NPO FOR POSSIBLE OR IN AM.
--- NOTE | 2019-08-24 05:42 | NUR ---
0540 MEDICATED WITH NORCO PO FOR C/O'S PAIN LEFT AXILLA, WITH SMALL SIP H20.
--- NOTE | 2019-08-24 06:10 | NUR ---
EARLIER PAIN MED EFFECTIVE. REMAINS NPO. NO DISTRESS NOTED.
[2019-08-24 06:15] LABS: BASO # 0.1 10*3/uL (0.0-0.1); BASO % 0.5 % (0.0-1.0); EOS # 0.2 10*3/uL (0.0-0.4); EOS % 1.7 % (1.0-4.0); HEMATOCRIT 50.5 % (42.0-52.0); HEMOGLOBIN 16.6 g/dl (14.0-18.0); LYMPH # 3.3 10*3/uL (1.3-4.4); LYMPH % 24.6 % (27.0-41.0); MEAN CELL VOLUME 92.2 fl (80.0-94.0); MEAN CORPUSCULAR HGB 30.3 pg (27.0-31.0); MEAN CORPUSCULAR HGB CONC 32.9 g/dl (33.0-37.0); MEAN PLATELET VOLUME 10.2 fl (9.6-12.3); MONO # 1.1 10*3/uL (0.1-1.0); MONO % 8.4 % (3.0-9.0); NEUT # 8.7 10*3/uL (2.3-7.9); NEUT % 64.5 % (47.0-73.0); PLATELET COUNT AUTOMATED 339 10*3/uL (130-400); RED BLOOD COUNT 5.48 10*6/uL (4.50-5.90); RED CELL DISTRI WIDTH 14.2 % (0-14.5); WHITE BLOOD COUNT 13.4 10*3/uL (4.8-10.8)
[2019-08-24 06:45] LABS: BUN 19 mg/dl (7-24); CHLORIDE 105 mmol/L (98-107); CHOLESTEROL 129 mg/dL (<200); CREATININE 1.23 mg/dL (0.70-1.30); HDL CHOLESTEROL 34 mg/dl (40-60); LDL CHOLESTEROL 62 mg/dL (9-159); PHOSPHOROUS 3.7 mg/dL (2.5-4.9); POTASSIUM 4.2 mmol/L (3.5-5.1); SODIUM 138 mmol/L (136-145); TRIGLYCERIDES 166 mg/dl (<150); VLDL CHOLESTEROL 33 mg/dL (6-40)
[2019-08-24 06:57] LABS: ACT PARTIAL THROMBO TIME 33.6 SECONDS (20.0-32.1)
--- NOTE | 2019-08-24 07:14 | NUR ---
MORGAN PATEL [id number] Please refer to the physician's history and physical for past medical history, comorbid conditions, and allergies. Diagnosis: ABSCESS LEFT ARMPIT Lorenzo Score: 23,LOW OR NO RISK WOUND DESCRIPTIONS: Wound Number: 1 Location of the wound: left side below axilla Type of wound: abscess Thickness: Partial Size: 4.5cm x 10.0cm x <0.1cm Tunneling: none Undermining: none Sinus Tract: none Presence of Exudate: none Amount: None Color: dark red Odor: None Periwound Skin Appearance: Erythema, firmness, warmth Wound edges: approximated Pain (associated with wound): tender to touch How does patient state this happened? pt stated this started 4 days ago and is sent here from the doctor office to be evaluated Surface the patient is resting on: Isoflex SKIN PREVENTION RECOMMENDATION: 1. Pressure redistribution support surface as appropriate 2. Elevate heels 3. Remove boots/TEDS every shift and reapply 4. Head of bed 30 degrees as tolerated 5. Assess nutrition and hydration 6. Manage moisture 7. Avoid the use of containment devices while in bed 8. Use absorptive products on surfaces limit layers of linens on bed 9. Turn and reposition every 1-2 hours in bed and every 1 hour in chair as tolerated 10. Weight shifts every 15 minutes while up in chair 11. Offloading with pillows or device to keep heels elevated off bed 12. Monitor skin at least every shift 13. Inspect under medical devices twice a day WOUND TREATMENT RECOMMENDATIONS: Dr. Loza is already consult for surgery today 08/24/19. Await post op orders since surgery in today 08/24/19. Patient stated that he will follow up with Dr. Loza or in the wound care center which ever Dr. Loza prefers on discharge. He stated any day or time will work well for him.
[2019-08-24 07:32] LABS: VITAMIN D, 25-HYDROXY 22.6 ng/mL (30-100)
--- NOTE | 2019-08-24 09:00 | NUR ---
Puttier in to talk to patient. Patient states lives at home with his mother. There are 0 steps in the home. Physician: Dr. Michael Gurrola [facility] Home health services: none Patient's level of ADLs: INDEPENDENT Patient has working utilities: yes DME: none Follow-up physician's appointment after d/c: he prefers to make his own follow up appt after discharge Does patient want to access PORTAL?: no Discharge plan discussed with patient. He lives at home with his mother. He is independent in his ADLs and ambulation. Discussed home health services and he denies any home needs at this time. He states it will be fine. When medically stable he will be discharged to home. His mother will provide transportation on discharge. FIDEL HOLDER
--- NOTE | 2019-08-24 17:18 | NUR ---
PT MEDIACTED WITH PRN NORCO AT 1618 FOR C/O LEFT AXILLA PAIN. 07/07. WAS EFFECTIVE.
--- NOTE | 2019-08-24 19:44 | NUR ---
TOOK OVER CARE OF PT, ASSESMENT COMPLETE AT THIS TIME. PT DRESSING TO LEFT AXILLA SOILED/DISLODGED. PACKING IN TACT. NEW ABD PADS SECURED WITH TAPE APPLIED, OLD DRESSING DISCARDED INTO TRASH. PT COMPLAINS OF NOTHING. ALL NEEDS CURRENTLY MET. CALL LIGHT IN REACH.
--- NOTE | 2019-08-24 22:00 | NUR ---
ATTEMPTED TO FLUSH PATIENT IV SITE TO RIGHT HAND IN ORDER TO INFUSE SCHEDULED ZOSYN. IV SITE NOT FLUSHING, EDEMATOUS, AND PAINFUL. PT REQUEST THAT IV CATHETER BE REMOVED. IV SITE DISCONTINUED AT THIS TIME. PT REFUSING A NEW IV SITE. DR HERNANDEZ NOTIFIED. NO NEW ORDERS RECEIVED AT THIS TIME. WILL ATTEMPT A NEW IV SITE AT A DIFFERENT TIME.
--- NOTE | 2019-08-24 23:55 | NUR ---
PT GIVEN NORCO AT THIS TIME FOR C/O PAIN TO LEFT AXILLA. WILL MONITOR FOR EFFECTIVENESS. PT LYIING IN BED, ALL SAFETY MEASURES IN PLACE. CALL LIGHT IN REACH. PT DENIES NEEDING ANYTHING ELSE AT THIS TIME.
[2019-08-25] VITALS: BP 113/64
--- NOTE | 2019-08-25 00:55 | NUR ---
GEORGE EFFECTIVE PER PT.
--- NOTE | 2019-08-25 06:41 | NUR ---
BLOOD SUGAR OBTAINED AND WNL. NO S/S OF DISTRESS. NO COMPLAINTS VOICED. PT LYING IN BED. ALL NEEDS MET. CALL LIGHT IN REACH.
--- NOTE | 2019-08-25 06:58 | NUR ---
DR LAUREANO IN TO SEE PATIENT. NEW ORDERS RECEIVED FOR AM NURSE TO CHANGE PACKING IN PATIENT'S DRESSING TO LEFT AXILLA. PT TO RECEIVE WOUND CARE CENTER NUMBER SO THAT PATIENT CAN FOLLOW UP AT WOUND CARE CENTER FOR WOUND TO LEFT AXILLA. DR LAUREANO STATES THAT PATIENT CAN BE DISCHARGED FROM HIS STANDPOINT.
[2019-08-25 08:00] VITALS: BP 123/73
--- NOTE | 2019-08-25 09:00 | NUR ---
PT REQUESTED AND GIVEN NORCO FOR C/O LEFT ARM PAIN. PT RATES PAIN 5/10 WILL MONITOR
[2019-08-25] MEDS ORDERED: DOXYCYCLINE100 M3 PO (14:32)
--- NOTE | 2019-08-25 14:53 | NUR ---
PT REFUSES TO HAVE DC WOUND PHOTOS
--- NOTE | 2019-08-25 15:06 | NUR ---
Discharge instructions reviewed with patient/family. Patient receptive and verbalizes understanding. Follow-up care arranged. Written instructions given to patient/family. SALIMA ALBARADO
== END 2019-08-25 15:06 | disposition home or self-care (01) | DRG 603 ==
LOC: 5E 15:22
PROVIDERS: Student in an Organized Health Care Education/Training Program; ADMIT Internal Medicine
PROC: 0X950ZZ Drainage of Left Axilla, Open Approach (ICD-10-PCS; principal; 2019-08-24)
DX: L02.412 Cutaneous abscess of left axilla (principal); F33.0 Major depressive disorder, recurrent, mild; I48.92 Unspecified atrial flutter; I10 Essential (primary) hypertension; E11.65 Type 2 diabetes mellitus with hyperglycemia; M54.5 Low back pain; G89.29 Other chronic pain; J43.9 Emphysema, unspecified; F17.210 Nicotine dependence, cigarettes, uncomplicated; E55.9 Vitamin D deficiency, unspecified; F12.10 Cannabis abuse, uncomplicated; N40.0 Benign prostatic hyperplasia without lower urinary tract symptoms; Z71.6 Tobacco abuse counseling; Z85.51 Personal history of malignant neoplasm of bladder; Z88.5 Allergy status to narcotic agent; Z82.49 Family history of ischemic heart disease and other diseases of the circulatory system; Z80.42 Family history of malignant neoplasm of prostate; Z79.01 Long term (current) use of anticoagulants

== ENCOUNTER → 2019-11-01 | Outpatient (CLI) | payer MEDICARE, MEDICAID ==
[~2019-11-01] MED LIST changes: +CIPROFLOXACIN500 M4 PO; +DOXYCYCLINE100 M3 PO; +DULOXETINE HCL30 MG PO; +FINASTERIDE5 M1 PO; +METOPROLOL SUCC50 M1 PO; +PRAVASTATIN SOD40 MG PO; +VITAMIN D-32000 UNI1 PO
[2019-11-01 15:26] LABS: BASO # 0.1 10*3/uL (0.0-0.1); BASO % 0.8 % (0.0-1.0); EOS # 0.3 10*3/uL (0.0-0.4); EOS % 1.7 % (1.0-4.0); HEMATOCRIT 49.6 % (42.0-52.0); HEMOGLOBIN 15.8 g/dl (14.0-18.0); LYMPH # 3.4 10*3/uL (1.3-4.4); MEAN CELL VOLUME 92.7 fl (80.0-94.0); MEAN CORPUSCULAR HGB 29.5 pg (27.0-31.0); MEAN CORPUSCULAR HGB CONC 31.9 g/dl (33.0-37.0); MEAN PLATELET VOLUME 10.2 fl (9.6-12.3); MONO # 1.3 10*3/uL (0.1-1.0); MONO % 8.6 % (3.0-9.0); NEUT # 9.6 10*3/uL (2.3-7.9); NEUT % 65.6 % (47.0-73.0); PLATELET COUNT AUTOMATED 354 10*3/uL (130-400); RED BLOOD COUNT 5.35 10*6/uL (4.50-5.90); RED CELL DISTRI WIDTH 14.3 % (0-14.5); WHITE BLOOD COUNT 14.7 10*3/uL (4.8-10.8)
[2019-11-01 16:00] LABS: ALBUMIN 3.5 gm/dl (3.1-4.5); ALKALINE PHOSPHATASE 146 U/L (45-117); BUN 18 mg/dl (7-24); CHLORIDE 109 mmol/L (98-107); POTASSIUM 3.8 mmol/L (3.5-5.1); SGOT/AST 20 IU/L (3-35); SGPT/ALT 35 U/L (12-78); SODIUM 143 mmol/L (136-145); TOTAL PROTEIN 7.1 gm/dL (6.4-8.2)
== END | disposition home or self-care (01) ==
LOC: LAB 14:30
PROVIDERS: Internal Medicine
DX: J44.9 Chronic obstructive pulmonary disease, unspecified (principal)

== ENCOUNTER 2019-11-07 14:28 | Inpatient (IN) | payer MEDICARE, MEDICAID ==
[~2019-11-07] VITALS: Ht 180.3 cm; Wt 118.6 kg
[~2019-11-07 14:28] MED LIST changes: -CIPROFLOXACIN500 M4 PO; -DULOXETINE HCL30 MG PO; -FINASTERIDE5 M1 PO; -METOPROLOL SUCC50 M1 PO; -PRAVASTATIN SOD40 MG PO; -VITAMIN D-32000 UNI1 PO
[2019-11-07 14:30] VITALS: BP 139/61
[2019-11-07 15:02] LABS: BASO # 0.1 10*3/uL (0.0-0.1); BASO % 0.4 % (0.0-1.0); EOS # 0.2 10*3/uL (0.0-0.4); EOS % 0.9 % (1.0-4.0); HEMATOCRIT 50.2 % (42.0-52.0); HEMOGLOBIN 16.3 g/dl (14.0-18.0); LYMPH # 2.9 10*3/uL (1.3-4.4); LYMPH % 17.1 % (27.0-41.0); MEAN CELL VOLUME 92.1 fl (80.0-94.0); MEAN CORPUSCULAR HGB 29.9 pg (27.0-31.0); MEAN CORPUSCULAR HGB CONC 32.5 g/dl (33.0-37.0); MEAN PLATELET VOLUME 10.2 fl (9.6-12.3); MONO # 1.3 10*3/uL (0.1-1.0); MONO % 7.7 % (3.0-9.0); NEUT # 12.2 10*3/uL (2.3-7.9); NEUT % 73.4 % (47.0-73.0); PLATELET COUNT AUTOMATED 315 10*3/uL (130-400); RED BLOOD COUNT 5.45 10*6/uL (4.50-5.90); RED CELL DISTRI WIDTH 13.9 % (0-14.5); WHITE BLOOD COUNT 16.7 10*3/uL (4.8-10.8)
[2019-11-07 15:19] LABS: ALBUMIN 3.4 gm/dl (3.1-4.5); ALKALINE PHOSPHATASE 142 U/L (45-117); BUN 17 mg/dl (7-24); CHLORIDE 106 mmol/L (98-107); LIPASE 228 U/L (73-393); POTASSIUM 3.7 mmol/L (3.5-5.1); SGOT/AST 15 IU/L (3-35); SGPT/ALT 33 U/L (12-78); SODIUM 139 mmol/L (136-145); TOTAL PROTEIN 7.4 gm/dL (6.4-8.2)
[2019-11-07 15:51] LABS: BILIRUBIN NEGATIVE (NEGATIVE); BLOOD TRACE-INTACT (NEGATIVE); CLARITY CLEAR (CLEAR); COLOR ORANGE (YELLOW); GLUCOSE 1+ (NEGATIVE); KETONE TRACE (NEGATIVE); LEUKO ESTERASE TRACE (NEGATIVE); NITRITE POSITIVE (NEGATIVE); PH 5.5 (5.0-9.0); SPECIFIC GRAVITY 1.025 (1.005-1.030); UROBILINOGEN >= 8.0 E.U./dl (0.2-1.0)
[2019-11-07 15:58] LABS: RBC 16-20 rbc/hpf (0-2); WBC 21-30 wbc/hpf (0-5)
[2019-11-07 15:59] LABS: BACTERIA TRACE
[2019-11-07 19:38] VITALS: BP 150/70
--- NOTE | 2019-11-07 19:38 | NUR ---
A 59, admitted to 4E, under the services of RODRIGO Mercedes MD with a diagnosis of DIVERTICULITIS SEPSIS. Chief complaint is ABDOMINAL PAIN. Patient arrived via wheel chair from ER. Monitor applied. Initial assessment completed. Vital signs taken and recorded. RODRIGO MERCEDES MD notified of admission to the unit. Orders received. See assessment for past medical history, medications and allergies. Patient and/or family oriented to unit. Clothing/patient valuable form completed. ALESHIA GERMAIN
[2019-11-07] MEDS ORDERED: DULOXETINE HCL30 MG PO (19:47)
[2019-11-07] MEDS ORDERED: METOPROLOL SUCC50 M1 PO (19:56)
[2019-11-07 20:00] VITALS: BP 150/70
[2019-11-07] MEDS ORDERED: FINASTERIDE5 M1 PO (20:01)
[2019-11-07] MEDS ORDERED: VITAMIN D-32000 UNI1 PO (20:01)
[2019-11-07] MEDS ORDERED: CIPROFLOXACIN500 M4 PO (20:03)
[2019-11-07] MEDS ORDERED: PRAVASTATIN SOD40 MG PO (20:04)
--- NOTE | 2019-11-07 20:30 | NUR ---
DR. RIVERO NOTIFIED PATIENT HOME MED REQ IS UPDATED ACCORDING TO CLAIM HISTORY BUT NEEDS VERIFIED WITH HIS PHARMACY D/T PATIENT NOT KNOWING MEDICATIONS.
[2019-11-07 20:36] VITALS: BP 124/72
--- NOTE | 2019-11-07 20:51 | NUR ---
NOTIFIED DR. RIVERO PATIENT HAD A LESS THAN 10 SECOND RUN OF V-TACH.
[2019-11-07 22:45] LABS: TROPONIN I < 0.015 ng/ml (<0.045)
[2019-11-08] VITALS: BP 132/54
--- NOTE | 2019-11-08 01:48 | NUR ---
24 HR chart check completed.
[2019-11-08 04:08] LABS: BASO # 0.1 10*3/uL (0.0-0.1); BASO % 0.5 % (0.0-1.0); EOS # 0.2 10*3/uL (0.0-0.4); EOS % 1.8 % (1.0-4.0); HEMATOCRIT 47.1 % (42.0-52.0); HEMOGLOBIN 14.9 g/dl (14.0-18.0); LYMPH # 2.8 10*3/uL (1.3-4.4); LYMPH % 23.1 % (27.0-41.0); MEAN CELL VOLUME 94.2 fl (80.0-94.0); MEAN CORPUSCULAR HGB 29.8 pg (27.0-31.0); MEAN CORPUSCULAR HGB CONC 31.6 g/dl (33.0-37.0); MEAN PLATELET VOLUME 10.3 fl (9.6-12.3); MONO # 1.2 10*3/uL (0.1-1.0); NEUT # 7.9 10*3/uL (2.3-7.9); NEUT % 64.1 % (47.0-73.0); PLATELET COUNT AUTOMATED 283 10*3/uL (130-400); WHITE BLOOD COUNT 12.3 10*3/uL (4.8-10.8)
[2019-11-08 04:29] LABS: ALBUMIN 2.9 gm/dl (3.1-4.5); ALKALINE PHOSPHATASE 111 U/L (45-117); BUN 14 mg/dl (7-24); CHLORIDE 111 mmol/L (98-107); CHOLESTEROL 115 mg/dL (<200); CREATININE 1.07 mg/dL (0.70-1.30); HDL CHOLESTEROL 38 mg/dl (40-60); PHOSPHOROUS 2.9 mg/dL (2.5-4.9); POTASSIUM 4.1 mmol/L (3.5-5.1); SGOT/AST 12 IU/L (3-35); SGPT/ALT 25 U/L (12-78); SODIUM 142 mmol/L (136-145); TOTAL PROTEIN 6.3 gm/dL (6.4-8.2)
[2019-11-08 04:30] LABS: LDL CHOLESTEROL 60 mg/dL (9-159); TRIGLYCERIDES 83 mg/dl (<150); VLDL CHOLESTEROL 17 mg/dL (6-40)
[2019-11-08 07:56] VITALS: BP 146/70
--- NOTE | 2019-11-08 09:00 | NUR ---
Airbrush Artist Technical in to talk to patient. Patient states lives at home with his mother. There are 0 steps in the home. Physician: Dr. Michael Gurrola [facility] Home health services: none Patient's level of ADLs: INDEPENDENT Patient has working utilities: yes DME: none Follow-up physician's appointment after d/c: he prefers to make his own follow up appt after discharge Does patient want to access PORTAL?: no Discharge plan discussed with patient. He lives at home with his mother. He is independent in his ADLs and ambulation. Discussed home health services and he denies any home needs at this time. He states it will be fine. When medically stable he will be discharged to home. He drove himself here so he will drive himself home. WBC elevated, on zosyn, IVFs, +UTI, UC and BC pending. FIDEL HOLDER
--- NOTE | 2019-11-08 10:58 | NUR ---
CALLED AT THIS TIME REGARDING ABD PAIN AND TYLENOL NOT EFFECTIVE. NEW ORDERS RECEIVED.
[2019-11-08 12:00] VITALS: BP 152/68
--- NOTE | 2019-11-08 12:22 | NUR ---
COMMUNICATIONS AGENT CALLED AT THIS TIME REGARDING RUNS OF TACHYCARDIA. PT ASYMPTOMATIC. NSR PER CM. WILL CONTINUE TO MONITOR.
--- NOTE | 2019-11-08 12:23 | NUR ---
MADE AWARE OF EKG RHYTHM CHANGES.
[2019-11-08 16:00] VITALS: BP 145/70
--- NOTE | 2019-11-08 16:00 | NUR ---
PATIENT RESTING QUIETLY IN BED. NO DISTRESS NOTED. RESPIRATIONS EASY, REGULAR ON ROOM AIR. NSR PER CM. VSS. CALL LIGHT WITHIN REACH.
--- NOTE | 2019-11-08 17:22 | NUR ---
CALLED REGARDING ABG RESULTS. NEW ORDERS RECEIVED.
[2019-11-08 20:00] VITALS: BP 163/91
[2019-11-09] VITALS: BP 144/73
--- NOTE | 2019-11-09 01:00 | NUR ---
PATIENT RESTING QUIETLY IN BED WITH EYES CLOSED. DENIES COMPLAINTS OF PAIN OR DISCOMFORT. RESPIRATIONS REGULAR ON ROOM AIR. CALL LIGHT IN REACH.
--- NOTE | 2019-11-09 01:28 | NUR ---
24 HR chart check completed.
[2019-11-09 07:01] LABS: BASO # 0.1 10*3/uL (0.0-0.1); BASO % 0.7 % (0.0-1.0); EOS # 0.3 10*3/uL (0.0-0.4); EOS % 2.7 % (1.0-4.0); HEMATOCRIT 48.2 % (42.0-52.0); HEMOGLOBIN 14.9 g/dl (14.0-18.0); LYMPH # 2.7 10*3/uL (1.3-4.4); MEAN CELL VOLUME 92.9 fl (80.0-94.0); MEAN CORPUSCULAR HGB 28.7 pg (27.0-31.0); MEAN CORPUSCULAR HGB CONC 30.9 g/dl (33.0-37.0); MEAN PLATELET VOLUME 10.5 fl (9.6-12.3); MONO % 9.6 % (3.0-9.0); NEUT # 6.7 10*3/uL (2.3-7.9); NEUT % 61.7 % (47.0-73.0); PLATELET COUNT AUTOMATED 322 10*3/uL (130-400); RED BLOOD COUNT 5.19 10*6/uL (4.50-5.90); RED CELL DISTRI WIDTH 13.8 % (0-14.5); WHITE BLOOD COUNT 10.8 10*3/uL (4.8-10.8)
[2019-11-09 07:16] LABS: BUN 10 mg/dl (7-24); CHLORIDE 107 mmol/L (98-107); SODIUM 139 mmol/L (136-145)
[2019-11-09 07:26] LABS: POTASSIUM 4.5 mmol/L (3.5-5.1)
--- NOTE | 2019-11-09 07:30 | NUR ---
PT RESTING IN BED. VOICES NO CONCERNS AT THIS TIME. NO S/S OF DISTRESS NOTED. CALL LIGHT WITHIN REACH
[2019-11-09 08:00] VITALS: BP 122/80
--- NOTE | 2019-11-09 09:00 | NUR ---
Passenger Relations Representative in to see patient. No new needs or request at this time. He denies any home needs. When medically stable he will be discharged to home. IVFs, zoshyannn, WBC WNL, BC pending, -UC.
--- NOTE | 2019-11-09 10:56 | NUR ---
NOTIFIED DR GREENE ABOUT PTS EKG STRIPS. NO NEW ORDERS AT THIS TIME.
[2019-11-09 12:00] VITALS: BP 124/78
--- NOTE | 2019-11-09 14:02 | NUR ---
PT RESTING IN BED WATCHING TV. VOICES NO CONCERNS AT THIS TIME. NO S/S OF DISTRESS NOTED. CALL LIGHT WITHIN REACH.
[2019-11-09 16:00] VITALS: BP 139/74
[2019-11-09 20:00] VITALS: BP 127/50
--- NOTE | 2019-11-09 20:36 | NUR ---
PT RESTING IN BED, EASILY AROUSED. RESPIRATIONS EASY AND UNLABORED ON ROOM AIR. PT DENIES NEEDING ANYTHING AT THIS TIME. NO SHORTNESS OF BREATH OR CHEST PAIN NOTED. BP WNL. IV SITE IS PATENT. SAFETY MEASURES IN PLACE. CALL LIGHT IN REACH.
[2019-11-10] VITALS: BP 144/57
--- NOTE | 2019-11-10 06:47 | NUR ---
PT RESTING IN BED. NO S/S OF DISTRESS NOTED. EASILY AROUSED. RESPIRATIONS EASY AND UNLABORED. NO COMPLAINTS ARE VOICED. MEDS TAKEN WITH EASE. CALL LIGHT IN REACH.
--- NOTE | 2019-11-10 06:47 | NUR ---
24 HR chart check completed.
--- NOTE | 2019-11-10 07:30 | NUR ---
DR RODRIGUEZ NOTIFIED THAT PT IV SITE TO LEFT ANTECUBITAL IS LEAKING AND PT REQUESTS IV CATHETER BE TAKEN OUT. PT IS REFUSING TO HAVE ANOTHER IV SITE AT THIS TIME. IV ZOSYN IS IN PROCESS OF RUNNING. DR RODRIGUEZ AWARE. NEW ORDERS FOR FLAGYL 500 MG PO TID AND CIPRO 500 MG BID. APPROPRIATE ORDERS PLACED. WILL NOTIFY AM NURSE.
[2019-11-10 07:33] LABS: BASO # 0.1 10*3/uL (0.0-0.1); BASO % 0.6 % (0.0-1.0); EOS # 0.3 10*3/uL (0.0-0.4); EOS % 2.6 % (1.0-4.0); HEMATOCRIT 49.6 % (42.0-52.0); HEMOGLOBIN 15.2 g/dl (14.0-18.0); LYMPH # 2.6 10*3/uL (1.3-4.4); MEAN CELL VOLUME 93.4 fl (80.0-94.0); MEAN CORPUSCULAR HGB 28.6 pg (27.0-31.0); MEAN CORPUSCULAR HGB CONC 30.6 g/dl (33.0-37.0); MEAN PLATELET VOLUME 10.7 fl (9.6-12.3); MONO # 0.9 10*3/uL (0.1-1.0); MONO % 8.4 % (3.0-9.0); NEUT # 6.4 10*3/uL (2.3-7.9); NEUT % 63.2 % (47.0-73.0); PLATELET COUNT AUTOMATED 331 10*3/uL (130-400); RED BLOOD COUNT 5.31 10*6/uL (4.50-5.90); RED CELL DISTRI WIDTH 13.5 % (0-14.5); WHITE BLOOD COUNT 10.2 10*3/uL (4.8-10.8)
[2019-11-10 08:00] VITALS: BP 138/58
[2019-11-10 08:01] LABS: BUN 10 mg/dl (7-24); CHLORIDE 107 mmol/L (98-107); POTASSIUM 4.5 mmol/L (3.5-5.1); SODIUM 141 mmol/L (136-145)
--- NOTE | 2019-11-10 08:30 | NUR ---
Patient resting quietly with no c/o discomfort. Respirations easy and regular. Vital signs stable. No overt distress. JADE CARRERA R
[2019-11-10] MEDS ORDERED: CIPRO500 MG PO (09:17)
[2019-11-10] MEDS ORDERED: FLAGYL500 MG PO (09:17)
--- NOTE | 2019-11-10 09:47 | NUR ---
Discharge instructions reviewed with patient/family. Patient receptive and verbalizes understanding. Follow-up care arranged. Written instructions given to patient/family. JADE CARRERA
--- NOTE | 2019-11-10 09:47 | NUR ---
FLU SHOT GIEVN PER PT REQUEST PER POLICY.
== END 2019-11-10 09:47 | disposition home or self-care (01) | DRG 872 ==
LOC: ED 14:28 → 4E 18:41 → EDHOLD 18:41 → 4E 18:48
PROVIDERS: Internal Medicine; Physician Assistant; ADMIT Internal Medicine
DX: A41.9 Sepsis, unspecified organism (principal); N39.0 Urinary tract infection, site not specified; K57.32 Diverticulitis of large intestine without perforation or abscess without bleeding; I10 Essential (primary) hypertension; E11.9 Type 2 diabetes mellitus without complications; G89.29 Other chronic pain; M54.9 Dorsalgia, unspecified; J44.9 Chronic obstructive pulmonary disease, unspecified; F32.9 Major depressive disorder, single episode, unspecified; F17.210 Nicotine dependence, cigarettes, uncomplicated; F12.90 Cannabis use, unspecified, uncomplicated; R31.9 Hematuria, unspecified; Z82.49 Family history of ischemic heart disease and other diseases of the circulatory system; Z85.51 Personal history of malignant neoplasm of bladder; Z88.5 Allergy status to narcotic agent; Z80.42 Family history of malignant neoplasm of prostate; Z79.899 Other long term (current) drug therapy

== ENCOUNTER 2020-03-17 10:28 | Emergency (ER) | payer MEDICARE, MEDICAID ==
[~2020-03-17] VITALS: Ht 180.3 cm; Wt 117.9 kg
[~2020-03-17 10:28] MED LIST changes: +CIPRO500 MG PO; +CIPROFLOXACIN500 M4 PO; +DULOXETINE HCL30 MG PO; +FINASTERIDE5 M1 PO; +METOPROLOL SUCC50 M1 PO; +PRAVASTATIN SOD40 MG PO; +VITAMIN D-32000 UNI1 PO
[2020-03-17 10:32] VITALS: BP 151/75
[2020-03-17 11:05] LABS: BASO # 0.1 10*3/uL (0.0-0.1); BASO % 0.6 % (0.0-1.0); EOS # 0.3 10*3/uL (0.0-0.4); HEMATOCRIT 51.1 % (42.0-52.0); LYMPH # 2.6 10*3/uL (1.3-4.4); MEAN CELL VOLUME 91.9 fl (80.0-94.0); MEAN CORPUSCULAR HGB 29.7 pg (27.0-31.0); MEAN CORPUSCULAR HGB CONC 32.3 g/dl (33.0-37.0); MEAN PLATELET VOLUME 10.2 fl (9.6-12.3); MONO # 0.8 10*3/uL (0.1-1.0); MONO % 6.7 % (3.0-9.0); NEUT # 8.5 10*3/uL (2.3-7.9); NEUT % 69.3 % (47.0-73.0); PLATELET COUNT AUTOMATED 285 10*3/uL (130-400); RED BLOOD COUNT 5.56 10*6/uL (4.50-5.90); RED CELL DISTRI WIDTH 15.3 % (0-14.5); WHITE BLOOD COUNT 12.3 10*3/uL (4.8-10.8)
[2020-03-17 11:19] LABS: ALBUMIN 3.2 gm/dl (3.1-4.5); ALKALINE PHOSPHATASE 137 U/L (45-117); BUN 12 mg/dl (7-24); CHLORIDE 109 mmol/L (98-107); POTASSIUM 4.1 mmol/L (3.5-5.1); SGOT/AST 13 IU/L (3-35); SGPT/ALT 37 U/L (12-78); SODIUM 141 mmol/L (136-145)
[2020-03-17] MEDS ORDERED: CLINDAMYCIN HC300 MG PO (11:35)
== END 2020-03-17 11:38 | disposition home or self-care (01) ==
LOC: ED 10:28
PROVIDERS: Nurse Practitioner Family
DX: L02.11 Cutaneous abscess of neck (principal); E11.9 Type 2 diabetes mellitus without complications; I10 Essential (primary) hypertension; I48.91 Unspecified atrial fibrillation; J44.9 Chronic obstructive pulmonary disease, unspecified; F17.210 Nicotine dependence, cigarettes, uncomplicated; Z88.5 Allergy status to narcotic agent; Z79.899 Other long term (current) drug therapy; Z79.2 Long term (current) use of antibiotics

== ENCOUNTER 2020-03-27 15:58 | Emergency (ER) | payer MEDICARE, MEDICAID ==
[~2020-03-27] VITALS: Ht 180.3 cm; Wt 117.9 kg
[~2020-03-27 15:58] MED LIST changes: +CLINDAMYCIN HC300 MG PO
[2020-03-27 16:01] VITALS: BP 165/77
[2020-03-27 16:20] LABS: BILIRUBIN NEGATIVE (NEGATIVE); BLOOD 3+ (NEGATIVE); CLARITY TURBID (CLEAR); COLOR BROWN (YELLOW); GLUCOSE NEGATIVE (NEGATIVE); KETONE TRACE (NEGATIVE); LEUKO ESTERASE TRACE (NEGATIVE); NITRITE POSITIVE (NEGATIVE); SPECIFIC GRAVITY 1.025 (1.005-1.030); UROBILINOGEN 0.2 E.U./dl (0.2-1.0)
[2020-03-27 16:26] LABS: BACTERIA 2+; EPITHELIAL CELLS 0-2; MUCOUS TRACE; RBC TNTC rbc/hpf (0-2); WBC TNTC wbc/hpf (0-5)
[2020-03-27] MEDS ORDERED: SEPTDS PO (16:50)
== END 2020-03-27 16:55 | disposition home or self-care (01) ==
LOC: ED 15:58
PROVIDERS: Emergency Medicine
DX: N39.0 Urinary tract infection, site not specified (principal); I10 Essential (primary) hypertension; E11.9 Type 2 diabetes mellitus without complications; E78.00 Pure hypercholesterolemia, unspecified; I48.91 Unspecified atrial fibrillation; F17.200 Nicotine dependence, unspecified, uncomplicated; Z88.5 Allergy status to narcotic agent; Z79.899 Other long term (current) drug therapy; Z79.84 Long term (current) use of oral hypoglycemic drugs

== ENCOUNTER → 2020-04-11 | Outpatient (CLI) | payer MEDICARE, MEDICAID | END | disposition home or self-care (01) | LOC: CT 12:43 | DX: C67.9 Malignant neoplasm of bladder, unspecified (principal) ==

== ENCOUNTER 2020-04-28 11:08 | Emergency (ER) | payer MEDICARE, MEDICAID ==
[~2020-04-28] VITALS: Ht 180.3 cm; Wt 115.7 kg
[2020-04-28 12:01] LABS: BASO # 0.1 10*3/uL (0.0-0.1); BASO % 0.5 % (0.0-1.0); EOS # 0.3 10*3/uL (0.0-0.4); EOS % 2.2 % (1.0-4.0); HEMATOCRIT 48.9 % (42.0-52.0); LYMPH # 3.2 10*3/uL (1.3-4.4); LYMPH % 27.4 % (27.0-41.0); MEAN CORPUSCULAR HGB CONC 31.9 g/dl (33.0-37.0); MEAN PLATELET VOLUME 9.9 fl (9.6-12.3); MONO % 8.7 % (3.0-9.0); NEUT % 60.9 % (47.0-73.0); PLATELET COUNT AUTOMATED 315 10*3/uL (130-400); RED CELL DISTRI WIDTH 14.8 % (0-14.5); WHITE BLOOD COUNT 11.5 10*3/uL (4.8-10.8)
[2020-04-28 12:11] LABS: ACT PARTIAL THROMBO TIME 31.3 SECONDS (20.0-32.1); INTERNATIONAL NORM RATIO 0.9 (2.0-3.5)
[2020-04-28 12:19] LABS: ALBUMIN 3.6 gm/dl (3.1-4.5); ALKALINE PHOSPHATASE 119 U/L (45-117); BUN 13 mg/dl (7-24); CHLORIDE 108 mmol/L (98-107); CREATININE 1.02 mg/dL (0.70-1.30); LIPASE 232 U/L (73-393); POTASSIUM 4.2 mmol/L (3.5-5.1); SGOT/AST 28 IU/L (3-35); SGPT/ALT 50 U/L (12-78); SODIUM 140 mmol/L (136-145); TOTAL PROTEIN 6.9 gm/dL (6.4-8.2)
[2020-04-28 12:24] LABS: TROPONIN I < 0.015 ng/ml (<0.045)
[2020-04-28 12:57] VITALS: BP 140/73
== END 2020-04-28 13:31 | disposition left against medical advice (07) ==
LOC: ED 11:08
PROVIDERS: Emergency Medicine
DX: R55 Syncope and collapse (principal); R42 Dizziness and giddiness; R07.9 Chest pain, unspecified; R06.02 Shortness of breath; F17.210 Nicotine dependence, cigarettes, uncomplicated; Z88.6 Allergy status to analgesic agent; Z79.899 Other long term (current) drug therapy

== ENCOUNTER 2020-11-04 13:11 | Observation (INO) | payer MEDICARE, MEDICAID ==
[~2020-11-04] VITALS: Ht 180.3 cm; Wt 117.9 kg
[2020-11-04 13:18] VITALS: BP 161/66
[2020-11-04 14:05] LABS: BASO # 0.1 10*3/uL (0.0-0.1); BASO % 0.6 % (0.0-1.0); EOS # 0.2 10*3/uL (0.0-0.4); EOS % 1.9 % (1.0-4.0); HEMATOCRIT 48.8 % (42.0-52.0); LYMPH # 2.8 10*3/uL (1.3-4.4); LYMPH % 25.4 % (27.0-41.0); MEAN CELL VOLUME 92.8 fl (80.0-94.0); MEAN CORPUSCULAR HGB 29.5 pg (27.0-31.0); MEAN CORPUSCULAR HGB CONC 31.8 g/dl (33.0-37.0); MEAN PLATELET VOLUME 9.9 fl (9.6-12.3); MONO # 0.7 10*3/uL (0.1-1.0); NEUT # 7.2 10*3/uL (2.3-7.9); NEUT % 65.6 % (47.0-73.0); PLATELET COUNT AUTOMATED 293 10*3/uL (130-400); RED BLOOD COUNT 5.26 10*6/uL (4.50-5.90); RED CELL DISTRI WIDTH 13.8 % (0-14.5); WHITE BLOOD COUNT 10.9 10*3/uL (4.8-10.8)
[2020-11-04 14:16] LABS: ACT PARTIAL THROMBO TIME 36.2 SECONDS (20.0-32.1); INTERNATIONAL NORM RATIO 1.1 (2.0-3.5)
[2020-11-04 14:32] LABS: ALBUMIN 3.5 gm/dl (3.1-4.5); ALKALINE PHOSPHATASE 130 U/L (45-117); BUN 14 mg/dl (7-24); CHLORIDE 107 mmol/L (98-107); CREATININE 1.23 mg/dL (0.70-1.30); POTASSIUM 4.2 mmol/L (3.5-5.1); SGOT/AST 31 IU/L (3-35); SGPT/ALT 59 U/L (12-78); SODIUM 141 mmol/L (136-145); TOTAL PROTEIN 6.8 gm/dL (6.4-8.2)
[2020-11-04 15:14] LABS: TROPONIN I 0.154 ng/ml (<0.045)
[2020-11-04 15:36] VITALS: BP 158/62
--- NOTE | 2020-11-04 16:04 | NUR ---
TROPONIN 1542 AND 1842 CANCELLED PER LAB REQUEST D/T DUPLICATE ORDERS
[2020-11-04 16:22] LABS: THYROID STIM HORMONE (HS) 1.45 uIU/ml (0.358-4.75)
--- NOTE | 2020-11-04 17:13 | NUR ---
DR RODRIGUEZ AWARE OF TROPONIN TRENDING UP. DR MERINO AWARE OF CONSULT. DR MERINO STATES HE WILL BE IN TO SEE THE PATIENT IN THE MORNING. NO NEW ORDERS RECEIVED.
--- NOTE | 2020-11-04 18:21 | NUR ---
PATIENT NOT IN EXAM ROOM AT THIS TIME
--- NOTE | 2020-11-04 19:32 | NUR ---
PATIENT STILL NOT IN EXAM ROOM. MULTIMEDIA ASSISTANT AND DR RODRIGUEZ MADE AWARE. PATIENT IS CONTACTED WELL. HE STATES THAT HE WAS TIRED OF SITTING IN THE EMERGENCY ROOM. I AGAIN EXPLAINED TO THE PATIENT THAT THERE WERE NO BEDS UPSTAIRS AND THAT HE NEEDED TO WAIT IN THE ED FOR A BED, A DID EARLIER IN THE DAY.
== END 2020-11-04 19:55 | disposition left against medical advice (07) ==
LOC: ED 13:11 → EDHOLD 15:07
PROVIDERS: Family Medicine; ADMIT Internal Medicine; ATTEND Internal Medicine
DX: R07.89 Other chest pain (principal); J45.909 Unspecified asthma, uncomplicated; I48.91 Unspecified atrial fibrillation; F12.90 Cannabis use, unspecified, uncomplicated; R77.8 Other specified abnormalities of plasma proteins; F17.210 Nicotine dependence, cigarettes, uncomplicated; Z20.828 Contact with and (suspected) exposure to other viral communicable diseases; Z98.890 Other specified postprocedural states; Z82.49 Family history of ischemic heart disease and other diseases of the circulatory system

== ENCOUNTER → 2020-11-11 | Outpatient (CLI) | payer MEDICARE, MEDICAID | END | disposition home or self-care (01) | LOC: CARD 00:19 | PROVIDERS: ATTEND Internal Medicine | DX: R07.2 Precordial pain (principal); R77.8 Other specified abnormalities of plasma proteins; R94.30 Abnormal result of cardiovascular function study, unspecified; R94.39 Abnormal result of other cardiovascular function study; I10 Essential (primary) hypertension; E11.9 Type 2 diabetes mellitus without complications ==

== ENCOUNTER → 2021-06-18 | Outpatient (CLI) | payer OTHER, MEDICAID | END | disposition home or self-care (01) | LOC: US 15:14 | PROVIDERS: ATTEND Internal Medicine | DX: N40.0 Benign prostatic hyperplasia without lower urinary tract symptoms (principal); R35.0 Frequency of micturition ==

== ENCOUNTER 2021-06-29 11:00 | Emergency (ER) | payer OTHER, MEDICAID | END 2021-06-29 19:35 | disposition left against medical advice (07) | LOC: ED 11:00 | DX: R31.9 Hematuria, unspecified (principal); Z53.21 Procedure and treatment not carried out due to patient leaving prior to being seen by health care provider ==

== ENCOUNTER → 2022-02-10 | Outpatient (CLI) | payer OTHER, MEDICAID ==
[2022-02-11 08:07] LABS: HEP B CORE AB, IGM Negative (Negative); HEPATITIS B SURFACE AG Negative (Negative); HEPATITIS C VIRUS ANTIBODY 0.1 s/co (0.0-0.9)
== END | disposition home or self-care (01) ==
LOC: LAB 07:21 → US 07:30
PROVIDERS: ATTEND Internal Medicine
DX: K76.0 Fatty (change of) liver, not elsewhere classified (principal); M17.11 Unilateral primary osteoarthritis, right knee; R74.8 Abnormal levels of other serum enzymes; R53.83 Other fatigue; I70.0 Atherosclerosis of aorta

== ENCOUNTER 2022-03-20 15:57 | Emergency (ER) | payer OTHER, MEDICAID ==
[~2022-03-20] VITALS: Ht 180.3 cm; Wt 117.9 kg
[2022-03-20 16:09] VITALS: BP 162/76
[2022-03-20] MEDS ORDERED: TRULICITY1.5 MG/0.5 SC (16:10)
[2022-03-20] MEDS ORDERED: VITAMIN E 400 UNIT (16:11)
== END 2022-03-20 16:54 | disposition home or self-care (01) ==
LOC: ED 15:57
DX: H57.89 Other specified disorders of eye and adnexa (principal); Z88.6 Allergy status to analgesic agent; Z79.899 Other long term (current) drug therapy; Z87.891 Personal history of nicotine dependence; Z98.890 Other specified postprocedural states

== ENCOUNTER 2022-05-02 10:30 | Emergency (ER) | payer OTHER, MEDICAID ==
[~2022-05-02 10:30] MED LIST changes: +TRULICITY1.5 MG/0.5 SC; +VITAMIN E 400 UNIT
[2022-05-02 10:34] VITALS: BP 183/80
[2022-05-02 11:41] LABS: BASO # 0.1 10*3/uL (0.0-0.1); BASO % 0.6 % (0.0-1.0); EOS # 0.3 10*3/uL (0.0-0.4); EOS % 1.7 % (1.0-4.0); HEMATOCRIT 49.8 % (42.0-52.0); LYMPH # 2.5 10*3/uL (1.3-4.4); LYMPH % 17.5 % (27.0-41.0); MEAN CELL VOLUME 92.6 fl (80.0-94.0); MEAN CORPUSCULAR HGB CONC 33.5 g/dl (33.0-37.0); MONO # 1.1 10*3/uL (0.1-1.0); MONO % 7.5 % (3.0-9.0); NEUT # 10.3 10*3/uL (2.3-7.9); NEUT % 72.3 % (47.0-73.0); PLATELET COUNT AUTOMATED 301 10*3/uL (130-400); RED BLOOD COUNT 5.38 10*6/uL (4.50-5.90); RED CELL DISTRI WIDTH 14.2 % (0-14.5); WHITE BLOOD COUNT 14.3 10*3/uL (4.8-10.8)
[2022-05-02 12:04] LABS: ALKALINE PHOSPHATASE 143 U/L (45-117); BUN 18 mg/dl (7-24); CHLORIDE 110 mmol/L (98-107); CREATININE 1.13 mg/dL (0.70-1.30); POTASSIUM 4.2 mmol/L (3.5-5.1); SGOT/AST 16 IU/L (3-35); SGPT/ALT 38 U/L (12-78); SODIUM 139 mmol/L (136-145); TOTAL PROTEIN 7.1 gm/dL (6.4-8.2)
[2022-05-02] MEDS ORDERED: CLINDAMYCIN HC300 MG PO (12:32)
[2022-05-03] MEDS ORDERED: GABAPENTIN600 MG PO (11:46)
== END 2022-05-02 12:30 | disposition left against medical advice (07) ==
LOC: ED 10:30
PROVIDERS: Emergency Medicine
DX: L02.416 Cutaneous abscess of left lower limb (principal)

== ENCOUNTER → 2022-05-11 | Outpatient (CLI) | payer OTHER, MEDICAID ==
[~2022-05-11] MED LIST changes: +DOXYCYCLINE HY100 M3 PO; +GABAPENTIN600 MG PO
== END | disposition home or self-care (01) ==
LOC: WOUNDCARE 01:34
PROVIDERS: ATTEND Surgery
DX: T81.89XA Other complications of procedures, not elsewhere classified, initial encounter (principal); L02.214 Cutaneous abscess of groin; E11.9 Type 2 diabetes mellitus without complications; I10 Essential (primary) hypertension; I48.91 Unspecified atrial fibrillation; G89.29 Other chronic pain; F17.210 Nicotine dependence, cigarettes, uncomplicated; F12.90 Cannabis use, unspecified, uncomplicated; F32.9 Major depressive disorder, single episode, unspecified; Y92.238 Other place in hospital as the place of occurrence of the external cause; Y83.8 Other surgical procedures as the cause of abnormal reaction of the patient, or of later complication, without mention of misadventure at the time of the procedure

== ENCOUNTER → 2023-02-02 | Outpatient (CLI) | payer OTHER, MEDICAID ==
[~2023-02-02] MED LIST changes: +LEVOFLOXACIN750 M2 PO; +METFORMIN HYD1000 MG PO; +VALSARTAN320 MG PO; +VITAMIN E180 M1 PO
== END | disposition home or self-care (01) ==
LOC: CARD 00:27
PROVIDERS: ATTEND Internal Medicine Cardiovascular Disease
DX: I44.7 Left bundle-branch block, unspecified (principal); I51.7 Cardiomegaly

== ENCOUNTER 2023-07-06 14:03 | Emergency (ER) | payer OTHER ==
[~2023-07-06] VITALS: Wt 115.7 kg
[2023-07-06 14:12] VITALS: BP 155/95
[2023-07-06 14:31] LABS: BASO # 0.1 10*3/uL (0.0-0.1); BASO % 0.7 % (0.0-1.0); EOS # 0.2 10*3/uL (0.0-0.4); EOS % 1.7 % (1.0-4.0); LYMPH # 2.3 10*3/uL (1.3-4.4); LYMPH % 18.6 % (27.0-41.0); MEAN CELL VOLUME 93.4 fl (80.0-94.0); MEAN CORPUSCULAR HGB 31.1 pg (27.0-31.0); MEAN CORPUSCULAR HGB CONC 33.3 g/dl (33.0-37.0); MEAN PLATELET VOLUME 9.8 fl (9.6-12.3); MONO # 0.8 10*3/uL (0.1-1.0); MONO % 6.3 % (3.0-9.0); NEUT # 8.8 10*3/uL (2.3-7.9); PLATELET COUNT AUTOMATED 301 10*3/uL (130-400); RED BLOOD COUNT 5.57 10*6/uL (4.50-5.90); RED CELL DISTRI WIDTH 14.5 % (0-14.5); WHITE BLOOD COUNT 12.2 10*3/uL (4.8-10.8)
[2023-07-06 14:42] LABS: ACT PARTIAL THROMBO TIME 29.7 SECONDS (20.0-32.1)
[2023-07-06 14:56] LABS: ALKALINE PHOSPHATASE 135 U/L (46-116); BUN 10 mg/dl (9-23); CHLORIDE 107 mmol/L (98-107); LIPASE 68 U/L (12-53); POTASSIUM 4.3 mmol/L (3.4-5.1); SGPT/ALT 44 U/L (10-49); TOTAL PROTEIN 7.2 gm/dL (6.0-8.0)
[2023-07-06] MEDS ORDERED: HYDROCODONE-AC1 EAC1 PO (17:10)
== END 2023-07-06 21:33 | disposition home or self-care (01) ==
LOC: ED 14:03
PROVIDERS: Emergency Medicine
DX: S20.212A Contusion of left front wall of thorax, initial encounter (principal); I10 Essential (primary) hypertension; J44.9 Chronic obstructive pulmonary disease, unspecified; E11.9 Type 2 diabetes mellitus without complications; I48.91 Unspecified atrial fibrillation; E78.00 Pure hypercholesterolemia, unspecified; Z88.5 Allergy status to narcotic agent; Z98.890 Other specified postprocedural states; Z72.0 Tobacco use; F12.90 Cannabis use, unspecified, uncomplicated; V89.2XXA Person injured in unspecified motor-vehicle accident, traffic, initial encounter; Y93.89 Activity, other specified; Y92.410 Unspecified street and highway as the place of occurrence of the external cause; Y99.8 Other external cause status

== ENCOUNTER 2023-07-09 11:53 | Emergency (ER) | payer OTHER, MEDICAID ==
[~2023-07-09] VITALS: Ht 180.3 cm; Wt 120.2 kg
[~2023-07-09 11:53] MED LIST changes: +HYDROCODONE-AC1 EAC1 PO
[2023-07-09 12:16] VITALS: BP 162/77
[2023-07-09] MEDS ORDERED: TRAMADOL HCL50 MG PO ×2 (12:52→12:59)
[2023-07-09] MEDS ORDERED: ZITHROMAX250 MG PO (12:52)
[2023-07-09] MEDS ORDERED: PREDNISONE20 M1 PO (12:52)
[2023-07-09] MEDS ORDERED: PROVENTIL HFA6.7 GM INH (12:56)
[2023-07-09] MEDS ORDERED: CYCLOBENZAPRINE10 MG PO (12:56)
== END 2023-07-09 13:03 | disposition home or self-care (01) ==
LOC: ED 11:53
DX: J44.1 Chronic obstructive pulmonary disease with (acute) exacerbation (principal); M79.10 Myalgia, unspecified site; I10 Essential (primary) hypertension; E11.9 Type 2 diabetes mellitus without complications; I48.91 Unspecified atrial fibrillation; E78.00 Pure hypercholesterolemia, unspecified; Z88.5 Allergy status to narcotic agent; Z98.890 Other specified postprocedural states; F12.90 Cannabis use, unspecified, uncomplicated; F17.200 Nicotine dependence, unspecified, uncomplicated

== ENCOUNTER → 2023-07-12 | Outpatient (CLI) | payer OTHER, MEDICAID ==
[~2023-07-12] MED LIST changes: +CYCLOBENZAPRINE10 MG PO; +PREDNISONE20 M1 PO
== END | disposition home or self-care (01) ==
LOC: LAB 14:20
PROVIDERS: ATTEND Internal Medicine
DX: R06.02 Shortness of breath (principal)

== ENCOUNTER 2023-07-17 12:29 | Emergency (ER) | payer OTHER, MEDICAID ==
[~2023-07-17] VITALS: Ht 180.3 cm; Wt 120.2 kg
[2023-07-17 13:36] LABS: BASO # 0.1 10*3/uL (0.0-0.1); BASO % 0.3 % (0.0-1.0); EOS # 0.1 10*3/uL (0.0-0.4); EOS % 0.8 % (1.0-4.0); HEMATOCRIT 52.1 % (42.0-52.0); LYMPH # 3.2 10*3/uL (1.3-4.4); LYMPH % 19.2 % (27.0-41.0); MEAN CELL VOLUME 94.9 fl (80.0-94.0); MEAN CORPUSCULAR HGB 30.2 pg (27.0-31.0); MEAN CORPUSCULAR HGB CONC 31.9 g/dl (33.0-37.0); MEAN PLATELET VOLUME 9.4 fl (9.6-12.3); MONO # 1.4 10*3/uL (0.1-1.0); MONO % 8.1 % (3.0-9.0); NEUT % 71.1 % (47.0-73.0); PLATELET COUNT AUTOMATED 354 10*3/uL (130-400); RED BLOOD COUNT 5.49 10*6/uL (4.50-5.90); RED CELL DISTRI WIDTH 14.9 % (0-14.5); WHITE BLOOD COUNT 16.8 10*3/uL (4.8-10.8)
[2023-07-17 13:47] LABS: ACT PARTIAL THROMBO TIME 30.5 SECONDS (20.0-32.1)
[2023-07-17 13:56] LABS: ALKALINE PHOSPHATASE 133 U/L (46-116); BUN 14 mg/dl (9-23); CHLORIDE 103 mmol/L (98-107); LIPASE 55 U/L (12-53); POTASSIUM 4.4 mmol/L (3.4-5.1); SGPT/ALT 29 U/L (10-49); TOTAL PROTEIN 6.9 gm/dL (6.0-8.0)
[2023-07-17 14:35] VITALS: BP 143/77
[2023-07-17] MEDS ORDERED: TRAMADOL HCL50 MG PO (16:48)
[2023-07-17] MEDS ORDERED: AMOX-CLAV 875-1 EACH PO (16:48)
== END 2023-07-17 16:50 | disposition home or self-care (01) ==
LOC: ED 12:29
PROVIDERS: Internal Medicine
DX: S22.41XA Multiple fractures of ribs, right side, initial encounter for closed fracture (principal); J18.9 Pneumonia, unspecified organism; I48.91 Unspecified atrial fibrillation; E11.9 Type 2 diabetes mellitus without complications; J44.9 Chronic obstructive pulmonary disease, unspecified; F17.210 Nicotine dependence, cigarettes, uncomplicated; Z88.5 Allergy status to narcotic agent; Z79.899 Other long term (current) drug therapy; Z98.890 Other specified postprocedural states; V89.2XXA Person injured in unspecified motor-vehicle accident, traffic, initial encounter; Y93.89 Activity, other specified; Y92.488 Other paved roadways as the place of occurrence of the external cause; Y99.8 Other external cause status

== ENCOUNTER → 2023-08-09 | Outpatient (CLI) | payer OTHER, MEDICAID ==
[~2023-08-09] MED LIST changes: +AMOX-CLAV 875-1 EACH PO
[2023-08-14 13:06] LABS: FREE PSA 0.189 ng/mL (.)
== END | disposition home or self-care (01) ==
LOC: LAB 10:15
PROVIDERS: ATTEND Internal Medicine
DX: N40.0 Benign prostatic hyperplasia without lower urinary tract symptoms (principal)

== ENCOUNTER 2023-12-11 17:31 | Emergency (ER) | payer OTHER, MEDICAID ==
[~2023-12-11] VITALS: Ht 180.3 cm; Wt 117.9 kg
[~2023-12-11 17:31] MED LIST changes: +CEFUROXIME AXE500 MG PO
[2023-12-11 17:40] VITALS: BP 170/79
== END 2023-12-11 20:06 | disposition left against medical advice (07) ==
LOC: ED 17:31
DX: M79.89 Other specified soft tissue disorders (principal); Z88.5 Allergy status to narcotic agent; Z53.21 Procedure and treatment not carried out due to patient leaving prior to being seen by health care provider

== ENCOUNTER → 2023-12-14 | Outpatient (CLI) | payer OTHER, MEDICAID | END | disposition home or self-care (01) | LOC: CT 02:11 | PROVIDERS: ATTEND Internal Medicine | DX: Z12.2 Encounter for screening for malignant neoplasm of respiratory organs (principal); J43.9 Emphysema, unspecified; I25.10 Atherosclerotic heart disease of native coronary artery without angina pectoris; K76.0 Fatty (change of) liver, not elsewhere classified; F17.210 Nicotine dependence, cigarettes, uncomplicated ==

== ENCOUNTER → 2024-03-21 | Outpatient (CLI) | payer OTHER, MEDICAID | END | disposition home or self-care (01) | LOC: LAB 12:05 | PROVIDERS: ATTEND Internal Medicine | DX: S70.362A Insect bite (nonvenomous), left thigh, initial encounter (principal); W57.XXXA Bitten or stung by nonvenomous insect and other nonvenomous arthropods, initial encounter; Y93.89 Activity, other specified; Y92.89 Other specified places as the place of occurrence of the external cause; Y99.8 Other external cause status ==

== ENCOUNTER 2024-04-25 11:01 | Inpatient (IN) | payer OTHER, MEDICAID ==
[~2024-04-25] VITALS: Ht 180.3 cm; Wt 117.9 kg
[2024-04-25 11:18] VITALS: BP 164/76
[2024-04-25] MEDS ORDERED: OXYCODONE-ACET1 EACH PO (11:29)
[2024-04-25] MEDS ORDERED: HYDROCHLOROTHIA25 M1 PO (11:29)
[2024-04-25] MEDS ORDERED: Vancomycin Hydrochloride 250 ML IV ONE (12:40)
[2024-04-25] MEDS ORDERED: Piperacillin Sodium/Tazobact 50 ML IV ONE (12:40)
[2024-04-25] MEDS ORDERED: SODIUM CHLORIDE 0.9% 1,000 ML IV ONE (12:45)
[2024-04-25 13:06] LABS: BASO # 0.1 10*3/uL (0.0-0.1); BASO % 0.6 % (0.0-1.0); EOS # 0.1 10*3/uL (0.0-0.4); EOS % 0.8 % (1.0-4.0); HEMATOCRIT 47.3 % (42.0-52.0); LYMPH # 2.6 10*3/uL (1.3-4.4); LYMPH % 14.4 % (27.0-41.0); MEAN CELL VOLUME 91.1 fl (80.0-94.0); MEAN CORPUSCULAR HGB 28.9 pg (27.0-31.0); MEAN CORPUSCULAR HGB CONC 31.7 g/dl (33.0-37.0); MEAN PLATELET VOLUME 9.6 fl (9.6-12.3); MONO # 1.3 10*3/uL (0.1-1.0); NEUT # 13.9 10*3/uL (2.3-7.9); NEUT % 76.9 % (47.0-73.0); PLATELET COUNT AUTOMATED 389 10*3/uL (130-400); RED BLOOD COUNT 5.19 10*6/uL (4.50-5.90); WHITE BLOOD COUNT 18.1 10*3/uL (4.8-10.8)
[2024-04-25] MEDS ORDERED: IOHEXOL 300 MG/ML 100 ML VIAL IV ONE (13:30)
[2024-04-25 13:34] LABS: ALKALINE PHOSPHATASE 141 U/L (46-116); BUN 9 mg/dl (9-23); CHLORIDE 105 mmol/L (98-107); SGPT/ALT 29 U/L (5-49); TOTAL PROTEIN 6.9 gm/dL (6.0-8.0)
[2024-04-25 18:00] VITALS: BP 154/67
[2024-04-25] MEDS ORDERED: Ketorolac Tromethamine 30 MG/ML VIAL IV ONE (20:50)
[2024-04-25] MEDS ORDERED: Acetaminophen/Oxycodone Hydr 7.5 MG/325 MG TABLET PO SCH (22:00)
[2024-04-26] MEDS ORDERED: VANCOMYCIN/WATER FOR INJ (PEG) 300 ML IV SCH
[2024-04-26 00:40] VITALS: BP 159/68
[2024-04-26 04:00] VITALS: BP 99/72
[2024-04-26 05:49] LABS: ALKALINE PHOSPHATASE 129 U/L (46-116); BUN 7 mg/dl (9-23); CHLORIDE 105 mmol/L (98-107); POTASSIUM 4.6 mmol/L (3.4-5.1); SGPT/ALT 25 U/L (5-49); TOTAL PROTEIN 6.4 gm/dL (6.0-8.0)
[2024-04-26 05:57] LABS: BASO # 0.1 10*3/uL (0.0-0.1); BASO % 0.6 % (0.0-1.0); EOS # 0.2 10*3/uL (0.0-0.4); EOS % 2.1 % (1.0-4.0); HEMATOCRIT 45.7 % (42.0-52.0); LYMPH # 2.7 10*3/uL (1.3-4.4); LYMPH % 23.3 % (27.0-41.0); MEAN CELL VOLUME 90.9 fl (80.0-94.0); MEAN CORPUSCULAR HGB CONC 31.9 g/dl (33.0-37.0); MEAN PLATELET VOLUME 10.4 fl (9.6-12.3); MONO # 1.1 10*3/uL (0.1-1.0); MONO % 9.1 % (3.0-9.0); NEUT # 7.5 10*3/uL (2.3-7.9); NEUT % 64.6 % (47.0-73.0); PLATELET COUNT AUTOMATED 357 10*3/uL (130-400); RED BLOOD COUNT 5.03 10*6/uL (4.50-5.90); RED CELL DISTRI WIDTH 14.2 % (0-14.5); WHITE BLOOD COUNT 11.6 10*3/uL (4.8-10.8)
[2024-04-26] MEDS ORDERED: RIVAROXABAN 20 MG TAB PO SCH (07:30)
[2024-04-26 08:00] VITALS: BP 127/89
[2024-04-26] MEDS ORDERED: METOPROLOL SUCCINATE XR 50 MG TAB PO SCH (10:00)
[2024-04-26] MEDS ORDERED: Losartan Potassium 100 MG TABLET PO SCH (10:00)
[2024-04-26] MEDS ORDERED: Duloxetine Hydrochloride 60 MG CAP PO SCH (10:00)
[2024-04-26] MEDS ORDERED: HYDROCHLOROTHIAZIDE 25 MG TAB PO SCH (10:00)
[2024-04-26] MEDS ORDERED: ATORVASTATIN CALCIUM 10 MG TAB PO SCH (10:00)
[2024-04-26] MEDS ORDERED: AMOX-CLAV 875-1 EACH PO (12:12)
[2024-04-26] MEDS ORDERED: DOXYCYCLINE HY100 M9 PO (12:12)
[2024-04-26] MEDS ORDERED: Piperacillin Sodium/Tazobact 50 ML IV SCH (22:15)
== END 2024-04-26 13:25 | disposition home or self-care (01) | DRG 603 ==
LOC: ED 11:01 → EDHOLD 12:44
PROVIDERS: Physician Assistant; ADMIT Internal Medicine; ATTEND Internal Medicine
DX: L03.115 Cellulitis of right lower limb (principal); I48.92 Unspecified atrial flutter; D72.829 Elevated white blood cell count, unspecified; L02.415 Cutaneous abscess of right lower limb; F17.210 Nicotine dependence, cigarettes, uncomplicated; I10 Essential (primary) hypertension; M54.9 Dorsalgia, unspecified; G89.29 Other chronic pain; F32.9 Major depressive disorder, single episode, unspecified; J44.9 Chronic obstructive pulmonary disease, unspecified; E55.9 Vitamin D deficiency, unspecified; N40.0 Benign prostatic hyperplasia without lower urinary tract symptoms; C67.9 Malignant neoplasm of bladder, unspecified; I48.0 Paroxysmal atrial fibrillation; E11.9 Type 2 diabetes mellitus without complications; Z82.49 Family history of ischemic heart disease and other diseases of the circulatory system; Z80.42 Family history of malignant neoplasm of prostate; Z71.6 Tobacco abuse counseling; Z79.1 Long term (current) use of non-steroidal anti-inflammatories (NSAID); Z79.899 Other long term (current) drug therapy; Z79.84 Long term (current) use of oral hypoglycemic drugs; Z88.5 Allergy status to narcotic agent; Z79.51 Long term (current) use of inhaled steroids

== ENCOUNTER 2024-06-02 16:30 | Emergency (ER) | payer OTHER, MEDICAID ==
[~2024-06-02] VITALS: Ht 180.3 cm; Wt 74.4 kg
[~2024-06-02 16:30] MED LIST changes: +DOXYCYCLINE HY100 M9 PO; +HYDROCHLOROTHIA25 M1 PO; +OXYCODONE-ACET1 EACH PO
[2024-06-02 16:37] VITALS: BP 154/71
[2024-06-02] MEDS ORDERED: Lidocaine Hydrochloride 2% 10 ML AMP SC ONE (17:15)
[2024-06-02] MEDS ORDERED: SEPTDS PO (17:38)
[2024-06-02] MEDS ORDERED: CEPHALEXIN500 M1 PO (17:38)
[2024-06-02] MEDS ORDERED: CEPHALEXIN 500 MG CAP PO ONE (17:40)
[2024-06-02] MEDS ORDERED: Sulfamethoxazole/Trimethopri 1 TAB TAB PO ONE (17:40)
== END 2024-06-02 17:41 | disposition home or self-care (01) ==
LOC: ED 16:30
DX: L02.214 Cutaneous abscess of groin (principal); J44.9 Chronic obstructive pulmonary disease, unspecified; I10 Essential (primary) hypertension; I48.91 Unspecified atrial fibrillation; E11.9 Type 2 diabetes mellitus without complications; F12.10 Cannabis abuse, uncomplicated; Z88.5 Allergy status to narcotic agent; Z98.890 Other specified postprocedural states; Z72.0 Tobacco use

== ENCOUNTER 2024-06-24 12:31 | Emergency (ER) | payer OTHER, MEDICAID ==
[2024-06-24 13:24] VITALS: BP 153/60
[2024-06-24] MEDS ORDERED: PREDNISONE20 M1 PO (16:05)
[2024-06-24] MEDS ORDERED: methylPREDNISolone sod succ 125 MG VIAL IM ONE (16:10)
== END 2024-06-24 16:16 | disposition home or self-care (01) ==
LOC: ED 12:31
DX: M25.562 Pain in left knee (principal); J44.9 Chronic obstructive pulmonary disease, unspecified; I10 Essential (primary) hypertension; E11.9 Type 2 diabetes mellitus without complications; I48.91 Unspecified atrial fibrillation; F12.10 Cannabis abuse, uncomplicated; F17.210 Nicotine dependence, cigarettes, uncomplicated; Z88.5 Allergy status to narcotic agent; Z98.890 Other specified postprocedural states

== ENCOUNTER → 2024-07-16 | Outpatient (CLI) | payer OTHER, MEDICAID | END | disposition home or self-care (01) | LOC: CARD 08:00 | PROVIDERS: ATTEND Internal Medicine | DX: R00.1 Bradycardia, unspecified (principal); R55 Syncope and collapse ==

== ENCOUNTER → 2024-08-01 | Outpatient (CLI) | payer OTHER, MEDICAID | END | disposition home or self-care (01) | LOC: US 00:51 | PROVIDERS: ATTEND Internal Medicine | DX: I65.23 Occlusion and stenosis of bilateral carotid arteries (principal); J44.9 Chronic obstructive pulmonary disease, unspecified; R55 Syncope and collapse; E11.9 Type 2 diabetes mellitus without complications; I10 Essential (primary) hypertension; F17.200 Nicotine dependence, unspecified, uncomplicated ==

== ENCOUNTER 2024-08-22 21:15 | Inpatient (IN) | payer OTHER, MEDICAID ==
[~2024-08-22] VITALS: Ht 180.3 cm; Wt 117.2 kg
[2024-08-22 21:23] VITALS: BP 178/91
[2024-08-22 21:53] LABS: BILIRUBIN Negative (Negative); BLOOD Negative (Negative); CLARITY Clear (Clear); COLOR Yellow (Yellow); GLUCOSE Negative (Negative); KETONE Negative (Negative); LEUKO ESTERASE Negative (Negative); NITRITE Negative (Negative); SPECIFIC GRAVITY 1.015 (1.001-1.030); UROBILINOGEN 0.2 E.U./dl (0.0-1.0)
[2024-08-22 22:04] LABS: BACTERIA TRACE; FINE GRANULAR CAST 0-2; MUCOUS 1+; RBC 0-2 rbc/hpf (0-2); WBC 0-2 wbc/hpf (0-5)
[2024-08-22 23:12] LABS: BASO # 0.1 10*3/uL (0.0-0.1); BASO % 0.5 % (0.0-1.0); EOS # 0.2 10*3/uL (0.0-0.4); EOS % 1.1 % (1.0-4.0); HEMATOCRIT 47.7 % (42.0-52.0); LYMPH # 1.8 10*3/uL (1.3-4.4); LYMPH % 13.6 % (27.0-41.0); MEAN CELL VOLUME 88.3 fl (80.0-94.0); MEAN CORPUSCULAR HGB 28.1 pg (27.0-31.0); MEAN CORPUSCULAR HGB CONC 31.9 g/dl (33.0-37.0); MEAN PLATELET VOLUME 10.2 fl (9.6-12.3); MONO % 7.7 % (3.0-9.0); NEUT # 10.2 10*3/uL (2.3-7.9); NEUT % 76.7 % (47.0-73.0); PLATELET COUNT AUTOMATED 263 10*3/uL (130-400); RED CELL DISTRI WIDTH 18.3 % (0-14.5); WHITE BLOOD COUNT 13.3 10*3/uL (4.8-10.8)
[2024-08-22 23:33] LABS: ALKALINE PHOSPHATASE 111 U/L (46-116); BUN 8 mg/dl (9-23); CHLORIDE 103 mmol/L (98-107); POTASSIUM 3.9 mmol/L (3.4-5.1); SGPT/ALT 31 U/L (5-49); TOTAL PROTEIN 6.5 gm/dL (6.0-8.0)
[2024-08-22] MEDS ORDERED: Ondansetron Hydrochloride 4 MG/2 ML VIAL IV ONE (23:55)
[2024-08-22] MEDS ORDERED: MORPHINE Sulfate 2 MG/ML SYR IV ONE (23:55)
[2024-08-23] MEDS ORDERED: MORPHINE Sulfate 2 MG/ML SYR IV ONE ×2 (02:10→04:20)
[2024-08-23] MEDS ORDERED: BISACODYL 5 MG TAB PO PRN (04:00)
[2024-08-23] MEDS ORDERED: ACETAMINOPHEN 325 MG TAB PO PRN (04:00)
[2024-08-23] MEDS ORDERED: ACETAMINOPHEN 650 MG SUPP R PRN (04:00)
[2024-08-23] MEDS ORDERED: Magnesium Hydroxide 30 ML UDC PO PRN (04:00)
[2024-08-23] MEDS ORDERED: BISACODYL 10 MG SUPP R PRN (04:00)
[2024-08-23 05:00] VITALS: BP 148/65
[2024-08-23 07:29] LABS: ALKALINE PHOSPHATASE 106 U/L (46-116); BUN 7 mg/dl (9-23); CHLORIDE 104 mmol/L (98-107); CHOLESTEROL 120 mg/dL (<200); FREE T4 1.09 ng/dl (0.89-1.76); LDL CHOLESTEROL 51 mg/dL (9-159); SGPT/ALT 29 U/L (5-49); TOTAL PROTEIN 6.3 gm/dL (6.0-8.0); TRIGLYCERIDES 132 mg/dl (<150)
[2024-08-23 07:49] LABS: VITAMIN D, 25-HYDROXY 59.7 ng/mL (30-100)
[2024-08-23 08:09] VITALS: BP 153/90
[2024-08-23] MEDS ORDERED: CYANOCOBALAMIN 1,000 MCG/ML VIAL IM ONE (10:45)
[2024-08-23] MEDS ORDERED: Acetaminophen/Oxycodone Hydr 7.5 MG/325 MG TABLET PO SCH (10:48)
[2024-08-23 13:19] VITALS: BP 149/75
[2024-08-23 21:00] VITALS: BP 174/86
[2024-08-23] MEDS ORDERED: Ciprofloxacin Hydrochloride 500 MG TAB PO SCH (22:00)
[2024-08-23] MEDS ORDERED: METRONIDAZOLE 500 MG TAB PO SCH (22:00)
[2024-08-24 01:00] VITALS: BP 144/74
[2024-08-24] MEDS ORDERED: MORPHINE Sulfate 2 MG/ML SYR IV ONE (05:35)
[2024-08-24 06:39] LABS: BASO # 0.1 10*3/uL (0.0-0.1); BASO % 0.6 % (0.0-1.0); EOS # 0.3 10*3/uL (0.0-0.4); EOS % 2.6 % (1.0-4.0); HEMATOCRIT 47.8 % (42.0-52.0); LYMPH # 2.1 10*3/uL (1.3-4.4); LYMPH % 20.5 % (27.0-41.0); MEAN CELL VOLUME 89.7 fl (80.0-94.0); MEAN CORPUSCULAR HGB 28.3 pg (27.0-31.0); MEAN CORPUSCULAR HGB CONC 31.6 g/dl (33.0-37.0); MEAN PLATELET VOLUME 10.4 fl (9.6-12.3); MONO % 9.5 % (3.0-9.0); NEUT # 6.9 10*3/uL (2.3-7.9); NEUT % 66.4 % (47.0-73.0); PLATELET COUNT AUTOMATED 272 10*3/uL (130-400); RED BLOOD COUNT 5.33 10*6/uL (4.50-5.90); RED CELL DISTRI WIDTH 18.2 % (0-14.5); WHITE BLOOD COUNT 10.4 10*3/uL (4.8-10.8)
[2024-08-24 06:50] LABS: BUN 10 mg/dl (9-23); CHLORIDE 103 mmol/L (98-107); POTASSIUM 4.2 mmol/L (3.4-5.1)
[2024-08-24] MEDS ORDERED: HYDROmorphONE Hydrochloride 0.5 MG/0.5 ML SYRINGE IV ONE (08:05)
[2024-08-24 08:27] VITALS: BP 150/64
[2024-08-24] MEDS ORDERED: Ketorolac Tromethamine 30 MG/ML VIAL IV ONE (09:20)
[2024-08-24] MEDS ORDERED: Ondansetron Hydrochloride 4 MG/2 ML VIAL IV PRN (09:55)
[2024-08-24] MEDS ORDERED: Ketorolac Tromethamine 30 MG/ML VIAL IV PRN (12:15)
[2024-08-24] MEDS ORDERED: SODIUM CHLORIDE 0.9% 1,000 ML IV SCH (12:15)
[2024-08-24 12:18] VITALS: BP 97/66
[2024-08-24 16:45] VITALS: BP 116/59
[2024-08-25] VITALS: BP 169/79
[2024-08-25 01:55] VITALS: BP 169/79
[2024-08-25 08:00] VITALS: BP 136/82
[2024-08-25] MEDS ORDERED: Losartan Potassium 100 MG TABLET PO SCH ×2 (10:00→10:53)
[2024-08-25] MEDS ORDERED: Duloxetine Hydrochloride 60 MG CAP PO SCH (10:00)
[2024-08-25] MEDS ORDERED: RIVAROXABAN 20 MG TAB PO SCH (10:21)
[2024-08-25 12:00] VITALS: BP 126/84
[2024-08-25] MEDS ORDERED: METRONIDAZOLE500 M1 PO (12:24)
[2024-08-25] MEDS ORDERED: CIPROFLOXACIN500 M4 PO (12:24)
== END 2024-08-25 13:13 | disposition home or self-care (01) | DRG 389 ==
LOC: ED 21:15 → EDHOLD 08-23 02:39 → 4E 08-24 22:21
PROVIDERS: Emergency Medicine; Student in an Organized Health Care Education/Training Program; ADMIT Internal Medicine; ATTEND Internal Medicine
DX: K56.699 Other intestinal obstruction unspecified as to partial versus complete obstruction (principal); I48.92 Unspecified atrial flutter; K57.30 Diverticulosis of large intestine without perforation or abscess without bleeding; I10 Essential (primary) hypertension; F17.210 Nicotine dependence, cigarettes, uncomplicated; M54.9 Dorsalgia, unspecified; G89.29 Other chronic pain; E55.9 Vitamin D deficiency, unspecified; J44.9 Chronic obstructive pulmonary disease, unspecified; E78.5 Hyperlipidemia, unspecified; E11.65 Type 2 diabetes mellitus with hyperglycemia; Z82.49 Family history of ischemic heart disease and other diseases of the circulatory system; V87.7XXD Person injured in collision between other specified motor vehicles (traffic), subsequent encounter; Z88.5 Allergy status to narcotic agent; Z68.36 Body mass index [BMI] 36.0-36.9, adult; Z85.51 Personal history of malignant neoplasm of bladder; Z79.84 Long term (current) use of oral hypoglycemic drugs; Z79.1 Long term (current) use of non-steroidal anti-inflammatories (NSAID); Z79.899 Other long term (current) drug therapy

== ENCOUNTER 2024-10-04 10:22 | Emergency (ER) | payer OTHER, MEDICAID ==
[~2024-10-04] VITALS: Ht 434.3 cm; Wt 115.7 kg
[~2024-10-04 10:22] MED LIST changes: +METRONIDAZOLE500 M1 PO
[2024-10-04 10:29] VITALS: BP 146/67
[2024-10-04] MEDS ORDERED: Sulfamethoxazole/Trimethopri 1 TAB TAB PO ONE (10:45)
[2024-10-04] MEDS ORDERED: SEPTDS PO (10:49)
== END 2024-10-04 11:03 | disposition home or self-care (01) ==
LOC: ED 10:22
DX: L02.214 Cutaneous abscess of groin (principal); I10 Essential (primary) hypertension; J44.9 Chronic obstructive pulmonary disease, unspecified; E11.9 Type 2 diabetes mellitus without complications; I48.91 Unspecified atrial fibrillation; F12.10 Cannabis abuse, uncomplicated; Z72.0 Tobacco use; Z88.5 Allergy status to narcotic agent; Z98.890 Other specified postprocedural states

== ENCOUNTER 2024-10-06 10:42 | Emergency (ER) | payer OTHER, MEDICAID ==
[~2024-10-06] VITALS: Ht 1673 cm; Wt 116.1 kg
[2024-10-06 11:23] VITALS: BP 124/59
[2024-10-06] MEDS ORDERED: Acetaminophen/Oxycodone 5 MG/325 MG TABLET PO ONE (11:35)
== END 2024-10-06 11:53 | disposition home or self-care (01) ==
LOC: ED 10:42
DX: L02.214 Cutaneous abscess of groin (principal); J44.9 Chronic obstructive pulmonary disease, unspecified; I48.91 Unspecified atrial fibrillation; I10 Essential (primary) hypertension; E78.5 Hyperlipidemia, unspecified; E11.9 Type 2 diabetes mellitus without complications; F12.10 Cannabis abuse, uncomplicated; Z72.0 Tobacco use; Z88.5 Allergy status to narcotic agent; Z98.890 Other specified postprocedural states

== ENCOUNTER 2025-01-17 14:44 | Emergency (ER) | payer OTHER, MEDICAID ==
[~2025-01-17] VITALS: Ht 180.3 cm; Wt 119.7 kg
[2025-01-17 15:19] VITALS: BP 158/70
[2025-01-17 15:27] LABS: BASO # 0.1 10*3/uL (0.0-0.1); BASO % 0.7 % (0.0-1.0); EOS # 0.2 10*3/uL (0.0-0.4); EOS % 1.4 % (1.0-4.0); HEMATOCRIT 50.1 % (42.0-52.0); MEAN CELL VOLUME 92.8 fl (80.0-94.0); MEAN CORPUSCULAR HGB 29.6 pg (27.0-31.0); MEAN CORPUSCULAR HGB CONC 31.9 g/dl (33.0-37.0); MEAN PLATELET VOLUME 10.1 fl (9.6-12.3); MONO # 0.9 10*3/uL (0.1-1.0); MONO % 7.8 % (3.0-9.0); NEUT # 7.7 10*3/uL (2.3-7.9); NEUT % 64.7 % (47.0-73.0); PLATELET COUNT AUTOMATED 307 10*3/uL (130-400); RED CELL DISTRI WIDTH 13.7 % (0-14.5); WHITE BLOOD COUNT 11.8 10*3/uL (4.8-10.8)
[2025-01-17 15:44] LABS: BUN 17 mg/dl (9-23); CHLORIDE 103 mmol/L (98-107)
== END 2025-01-17 15:59 | disposition home or self-care (01) ==
LOC: ED 14:44
PROVIDERS: Physician Assistant Medical
DX: I10 Essential (primary) hypertension (principal); J44.9 Chronic obstructive pulmonary disease, unspecified; F17.210 Nicotine dependence, cigarettes, uncomplicated; Z88.5 Allergy status to narcotic agent; Z79.899 Other long term (current) drug therapy; Z98.890 Other specified postprocedural states

== ENCOUNTER → 2025-01-23 | Outpatient (CLI) | payer OTHER, MEDICAID | END | disposition home or self-care (01) | LOC: LAB 16:32 | PROVIDERS: ATTEND Physician Assistant | DX: Z11.3 Encounter for screening for infections with a predominantly sexual mode of transmission (principal); F41.9 Anxiety disorder, unspecified; R79.89 Other specified abnormal findings of blood chemistry ==

== ENCOUNTER 2025-03-22 16:00 | Emergency (ER) | payer OTHER, MEDICAID | END 2025-03-22 17:04 | disposition left against medical advice (07) | LOC: ED 16:00 | DX: R06.02 Shortness of breath (principal); R05.9 Cough, unspecified; Z53.21 Procedure and treatment not carried out due to patient leaving prior to being seen by health care provider; Z88.5 Allergy status to narcotic agent ==

== ENCOUNTER 2025-06-04 13:32 | Emergency (ER) | payer OTHER, MEDICAID ==
[~2025-06-04] VITALS: Ht 180.3 cm; Wt 116.1 kg
[2025-06-04 13:38] VITALS: BP 125/74
[2025-06-04] MEDS ORDERED: Proparacaine Hydrochloride 15 ML BOT OPH ONE (13:55)
[2025-06-04] MEDS ORDERED: LISSAMINE GREEN 1.5 MG STRIP OP ONE (14:05)
[2025-06-04] MEDS ORDERED: ERYTHROMYCIN OPH1 GM OPH (14:44)
== END 2025-06-04 14:54 | disposition home or self-care (01) ==
LOC: ED 13:32
DX: S05.01XA Injury of conjunctiva and corneal abrasion without foreign body, right eye, initial encounter (principal); Z88.5 Allergy status to narcotic agent; Z79.899 Other long term (current) drug therapy; Z98.890 Other specified postprocedural states; Z87.891 Personal history of nicotine dependence; X58.XXXA Exposure to other specified factors, initial encounter; Y93.89 Activity, other specified; Y92.89 Other specified places as the place of occurrence of the external cause; Y99.8 Other external cause status

== ENCOUNTER → 2025-11-08 | Outpatient (CLI) | payer OTHER, MEDICAID ==
[~2025-11-08] MED LIST changes: +ERYTHROMYCIN OPH1 GM OPH
[2025-11-08 10:50] LABS: LDL CHOLESTEROL 95 mg/dL (9-159)
[2025-11-08 11:12] LABS: VITAMIN D, 25-HYDROXY 53.0 ng/mL (30-100)
== END | disposition home or self-care (01) ==
LOC: LAB 10:01
PROVIDERS: Internal Medicine; ATTEND Internal Medicine Nephrology
DX: E11.9 Type 2 diabetes mellitus without complications (principal); R53.83 Other fatigue; E55.9 Vitamin D deficiency, unspecified